=== PATIENT | female | born 1945 | race Caucasian/White ===

== ENCOUNTER 2018-02-04 07:30 | Inpatient (IN) | payer MEDICARE, OTHER ==
--- NOTE | 2018-04-24 20:36 | HP ---
PREOPERATIVE HISTORY AND PHYSICAL: DATE OF ADMISSION/SURGERY: 05/06/18 DATE OF OFFICE VISIT: 04/24/18 ATTENDING SURGEON: Dr. Lloyd Baker.* (DICTATED bY KAMILAH ROE) PROCEDURE: Right total shoulder reverse. CHIEF COMPLAINT: Right shoulder pain. HISTORY OF PRESENT ILLNESS: Faby is a 73-year-old female who presents to the clinic for right shoulder pain due to osteoarthritis and rotator cuff tear. She has failed conservative measures and has therefore agreed to undergo a right total shoulder reverse with Dr. Baker on 05/06/18. PAST MEDICAL HISTORY: 1. Hypertension. 2. Chronic hyponatremia. 3. Asthma. 4. Lim's esophagus. 5. Severe scoliosis. 6. Osteoarthritis. 7. History of non-Hodgkin's lymphoma. 8. History of alcoholism, she is 14 years' sober. PAST SURGICAL HISTORY: 1. Right axilla mass removed in 1992 with chemotherapy. 2. D and C. 3. Excision of basal cell carcinoma of left neck and squamous cell carcinoma of the scalp. 4. Skin graft to the palmar aspect of the right index finger. 5. Cholecystectomy. 6. Tonsillectomy. 7. Excision of squamous cell carcinoma with scalp repair. 8. Endoscopy. The patient denies prior complications with anesthesia. MEDICATIONS: 1. Bumetanide 1 mg once a week. 2. Spironolactone 25 mg 1 by mouth everyday. 3. Gabapentin 400 mg 1 cap twice a day. 4. Flovent 110 mcg per act 2 puffs twice a day. 5. ProAir HFA 2 puffs 4 times a day. 6. Fluticasone propionate 50 mcg per act 2 sprays in the nostril daily. 7. Azelastine nasal 0.15% 1 spray each nostril daily. 8. Ibuprofen 200 mg 2 to 3 tabs every 6 hours as needed for pain. 9. Multivitamin 1 everyday. 10. Os-Fox 1 daily. 11. Vitamin D 2000 units 1 daily. 12. Biotin maximum strength 5000 mcg 1 by mouth daily. 13. Fexofenadine 180 mg daily. 14. Diclofenac sodium 1% apply 2 g to affected area twice a day. 15. Lactaid as directed. 16. Protonix 40 mg 1 by mouth everyday. ALLERGIES: CEPHALOSPORIN, shellfish-derived products, and KEFLEX. The patient is not allergic to penicillin. She has been skin tested. FAMILY HISTORY: Positive for cancer on maternal side. SOCIAL HISTORY: She lives alone. 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 She denies tobacco use. She reports a history of alcoholism. She has been sober for 14 years. She is right-hand dominant. REVIEW OF SYSTEMS: A 14-point review of systems was reviewed with the patient. Positive for current complaint; otherwise, negative. Denies fever, chills, chest pain, shortness of breath, history of DVT, history of bleeding disorder. PHYSICAL EXAMINATION GENERAL: A 73-year-old well-developed, well-nourished female, in no acute distress. Alert and oriented x3. VITAL SIGNS: Height 58.5, weight 131, blood pressure 124/74, respiratory rate 20, temperature 97.9, BMI 26.9. HEENT: Normocephalic, atraumatic. PERRLA. Throat clear. NECK: Supple. PULMONARY: Lungs are clear to auscultation bilaterally. No wheezing, rhonchi, or rales. CARDIO: Regular rate and rhythm. S1, S2. No murmurs, gallops, or rubs. No edema. ABDOMEN: Positive bowel sounds. Soft, nontender. NEURO: Alert and oriented x3. Cranial nerves grossly intact. MUSCULOSKELETAL: Right upper extremity: Skin is intact. No warmth or erythema. 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 She is only able to forward flex to about 80 degrees, abduct to about 45, externally rotate to 20, internal rotation to lateral hip. +2 radial pulses. Sensation intact to light touch distally. +4/5 strength to rotator cuff testing with pain. DIAGNOSTIC STUDIES: CT of the right shoulder revealed glenohumeral joint osteoarthritis with a full-thickness rotator cuff tear. IMPRESSION: Right shoulder osteoarthritis, rotator cuff tear. PLAN: The patient is scheduled to undergo a right total shoulder reverse with Dr. Baker on 05/06/18. Postoperatively, a consult for physical therapy to help with ambulation will be placed. She will be given vancomycin preoperatively and postoperatively. We will wean her off of narcotics as soon as possible and get her on Tylenol and ibuprofen due to her history of alcoholism. She does have mild white blood cell count from a week ago. We will repeat those labs as well as a urine to make sure she does not have a UTI. If she does, we will treat her preoperatively. She will follow up in 10 to 14 days postop for followup and suture removal. KAMILAH ROE [id number]/[facility] #: [id number] [place]
[2018-05-05] MEDS ORDERED: Buffered Lidocaine 1% SYRIN* 1 ML/SYRINGE INTRADERM ONE (14:30)
[2018-05-06] MEDS ORDERED: VANCOMYCIN IVPB SCH ×2
[2018-05-06] MEDS ORDERED: NS 0.9% IVPB SCH ×2
--- OUTSIDE RECORDS SUMMARY | 2018-05-06 05:36 | XMS REPORT | Continuity of Care Document ---
:1945 External Reference #:[id number] Author Name Nadja Odonnell Care Team Providers Name Role Phone Briana Medrano MD Primary Care Physician Unavailable Payers Type Date Identification Numbers Payment Provider Subscriber Policy Number: [id number] Medicare Faby Hobson PayID: [id number] [address] [place] [address] Expires: 2017 Policy Number: [id number] Medicare Faby Hobson PayID: [id number] [address] [place] [address] Policy Number: [id number] [facility] Faby Hobson Group Number: [id number] [address] PayID: [id number] [place] [address] Advance Directives Description No Information Available Problems Date Description Provider Status Onset: 01/01/2018 Closed fracture of distal end of radius Lloyd Baker MD Active Onset: 12/11/2017 Wrist joint pain Lloyd Baker MD Active Onset: 07/03/2017 Full thickness rotator cuff tear Lloyd Baker MD Active Onset: 07/03/2017 Localized, primary osteoarthritis of the Lloyd Baker MD Active shoulder region Family History Description No Information Available Social History Type Date Description Comments Sex Unknown Lives With Alone 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 ETOH Use Denies alcohol use Tobacco Use Start: Unknown Patient has never smoked Smoking Status Reviewed: 04/07/18 Patient has never smoked Exercise Type/Frequency Exercises sporadically Allergies, Adverse Reactions, Alerts Date Description Reaction Status Severity Comments 05/06/2017 Cephalosporins Active 05/06/2017 Penicillin Active 05/06/2017 Shellfish-Derived Products Active 05/06/2017 Keflex Rash Active Medications Medication Date Status Form Strength Qnty SIG Indications Ordering Provider Nexium 04/09/ Active Capsules DR 40mg 90cap 1 by [place] [address] s mouth Hess, every day 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 Bumetanide 04/09/ Active Tablets 1mg 14tab once a [place] [address] s week PAUL Hess Spironolactone 04/09/ Active Tablets 25mg 30tab 1 by [place] [address] s mouth Hess, every day 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 or as directed Gabapentin / Active Capsules 400mg Take 1 Unknown 0000 Capsule By Mouth Twice Daily And 2 Capsules AT Bedtime Flovent HFA / Active Aerosol 110mcg/Ac Inhale 2 Unknown 0000 t Puffs By Mouth Twice Daily Proair HFA / Active Aerosol 108(90Bas Inhale 2 Unknown 0000 e) Puffs By mcg/Act Mouth 4 Times Daily as Needed Fluticasone / Active Suspension 50mcg/Act Use 2 Unknown Propionate 0000 Sprays In Each Nostril Daily Azelastine HCL / Active Solution 0.15% Use 1 Unknown (Nasal) 0000 [place] In Each Nostril Daily Ibuprofen 200 / Active Tablets 200mg 400-600mg Unknown 0000 every 6 hours as needed for pain. Multivitamin / Active Tablets 1 by Unknown Adult 0000 mouth every day Oscal 500/200 / Active Tablets 500-200mg Unknown D-3 0000 -Unit Vitamin D3 Super / Active Capsules 2000Unit 1 by Unknown Strength 0000 mouth every day Biotin Maximum / Active Capsules 5000mcg otc Unknown Strength 0000 Fexofenadine HCL / Active Tablets 180mg once Unknown 0000 daily Diclofenac / Active Gel 1% apply 2 Unknown Sodium 0000 grams to affected area twice daily Lactaid / Active as Unknown 0000 directed Glucosamine / Hx Capsules 500Comp 1 by Unknown Chondroitin 500 0000 - mouth Complex 01/07/ twice a 2018 day Vitamin C // Hx daily Unknown 0000 - 2017 Medications Administered in Office Medication Date Status Form Strength Qnty SIG Indications Ordering Provider Triamcinolone 01/08/ Administered Injection Zaneb (Kenalog) 2017 MD Olivia Triamcinolone 11/18/ Administered Injection Zaneb (Kenalog) 2017 MD Olivia Triamcinolone 10/07/ Administered Injection Zaneb (Kenalog) 2017 MD Olivia Triamcinolone 08/12/ Administered Injection Zaneb (Kenalog) 2017 MD Olivia Triamcinolone 07/03/ Administered Injection Zaneb (Kenalog) 2017 MD Olivia Triamcinolone 05/06/ Administered Injection Zaneb (Kenalog) 2017 MD Olivia Immunizations Description No Information Available Vital Signs Date Vital Result Comment 04/07/2018 10:05am Height 58.5 inches 4'10.50" Weight 133.00 lb BP Systolic 134 mmHg BP Diastolic 66 mmHg Respiratory Rate 20 /min Pain Level 6 BMI (Body Mass Index) 27.3 kg/m2 04/01/2018 8:10am Height 58.5 inches 4'10.50" Weight 133.00 lb BP Systolic 108 mmHg BP Diastolic 67 mmHg Respiratory Rate 17 /min Pain Level 2 BMI (Body Mass Index) 27.3 kg/m2 01/13/2018 8:16am BP Systolic 142 mmHg BP Diastolic 82 mmHg Pain Level 9 01/08/2018 8:08am Heart Rate 84 /min BP Systolic 128 mmHg BP Diastolic 80 mmHg Respiratory Rate 12 /min Body Temperature 97.0 F Pain Level 0 01/01/2018 2:34pm Heart Rate 64 /min BP Systolic 148 mmHg BP Diastolic 96 mmHg Respiratory Rate 18 /min Pain Level 6 12/11/2017 8:28am Height 58.5 inches 4'10.50" Weight 132.00 lb BP Systolic 124 mmHg BP Diastolic 62 mmHg Respiratory Rate 20 /min Pain Level 4 BMI (Body Mass Index) 27.1 kg/m2 11/18/2017 8:40am Height 58.5 inches 4'10.50" Heart Rate 80 /min BP Systolic Sitting 150 mmHg BP Diastolic Sitting 70 mmHg Respiratory Rate 16 /min Body Temperature 97.7 F Pain Level 3 10/07/2017 7:57am Height 58.5 inches 4'10.50" Weight 132.00 lb BP Systolic 130 mmHg BP Diastolic 80 mmHg Respiratory Rate 16 /min Body Temperature 98.1 F Pain Level 5 BMI (Body Mass Index) 27.1 kg/m2 08/26/2017 11:04am Height 58.5 inches 4'10.50" Weight 132.00 lb Heart Rate 80 /min BP Systolic 122 mmHg BP Diastolic 76 mmHg Body Temperature 98.0 F Pain Level 0 BMI (Body Mass Index) 27.1 kg/m2 08/12/2017 3:00pm Height 58.5 inches 4'10.50" Weight 132.00 lb BP Systolic 124 mmHg BP Diastolic 72 mmHg Respiratory Rate 20 /min Pain Level 5 BMI (Body Mass Index) 27.1 kg/m2 07/03/2017 1:05pm Height 58.5 inches 4'10.50" Weight 132.00 lb BP Systolic 124 mmHg BP Diastolic 82 mmHg Respiratory Rate 20 /min Pain Level 5 BMI (Body Mass Index) 27.1 kg/m2 05/06/2017 8:28am Height 58.5 inches 4'10.50" Weight 132.00 lb w/ shoes Heart Rate 84 /min reg BP Systolic Sitting 100 mmHg Lue BP Diastolic Sitting 64 mmHg Lue Respiratory Rate 16 /min Pain Level 8 B/L shoulders BMI (Body Mass Index) 27.1 kg/m2 05/06/2017 8:20am Height 58.5 inches 4'10.50" Weight 132.00 lb BMI (Body Mass Index) 27.1 kg/m2 Results Test Date Facility Test Result H/L Range Note Laboratory test 09/12/2017 [facility] Vitamin D 74.7 ng/mL High 20-[address] [place] [address] [phone] Procedures Date Code Description Status 01/08/2018 Inj/Aspir Major JT Or Bursa W/ US Completed 11/18/2017 Inject/Drain Joint/Bursa Major W/O US Completed 10/07/2017 Inj/Aspir Major JT Or Bursa W/ US Completed 08/12/2017 Inject/Drain Joint/Bursa Major W/O US Completed 07/03/2017 Inject/Drain Joint/Bursa Major W/O US Completed 05/06/2017 Inject/Drain Joint/Bursa Major W/O US Completed 06/03/2016 [id number] Mammogram Completed 10/12/2015 [id number] Bone Mineral Density Test Completed 05/25/2015 [id number] Mammogram Completed 05/24/2014 [id number] Mammogram Completed 05/19/2013 [id number] Mammogram Completed 05/20/2012 [id number] Mammogram Completed 05/18/2012 [id number] Mammogram Completed 05/16/2010 [id number] Mammogram Completed 05/03/2009 [id number] Mammogram Completed 02/02/2005 [id number] Bone Mineral Density Test Completed Encounters Type Date Location Provider Dx Diagnosis Office Visit 01/13/2018 Orthopedic Nick Alvarado, S52.502D Unsp fx the low 8:00a Services Of Richard.Roderick MD end left rad, subs for clos fx w routn [facility] Office Visit 01/01/2018 Orthopedic Lloyd Baker MD S52.502A Unsp fracture of 2:30p Services Of [facility] the lower end of left radius, init S52.502D Unsp fx the low end left rad, subs for clos fx w routn [facility] Office Visit 12/11/2017 [place] Blood9.012 Primary 8:15a Services Of osteoarthritis, left C.M.A. shoulder M25.532 Pain in left wrist Office Visit 11/18/2017 Tahira Baker M19.011 Primary 8:45a Services Of osteoarthritis, C.M.A. right shoulder M75.121 Complete rotatr-cuff tear/ruptr of r shoulder, not trauma Office Visit 08/26/2017 Tahira Baker M19.011 Primary 11:00a Services Of osteoarthritis, C.M.A. right shoulder M75.121 Complete rotatr-cuff tear/ruptr of r shoulder, not trauma Office Visit 08/12/2017 Tahira Baker M19.011 Primary 2:45p Services Of osteoarthritis, C.M.A. right shoulder M75.121 Complete rotatr-cuff tear/ruptr of r shoulder, not trauma Office Visit 07/03/2017 Tahira Baker M19.012 Primary 1:00p Services Of osteoarthritis, left C.M.A. shoulder M19.011 Primary osteoarthritis, right shoulder M75.121 Complete rotatr-cuff tear/ruptr of r shoulder, not trauma M75.122 Complete rotatr-cuff tear/ruptr of left shoulder, not trauma Office Visit 05/06/2017 Tahira Baker M19.012 Primary 8:00a Services Of osteoarthritis, left C.M.A. shoulder M19.011 Primary osteoarthritis, right shoulder M75.121 Complete rotatr-cuff tear/ruptr of r shoulder, not trauma M75.122 Complete rotatr-cuff tear/ruptr of left shoulder, not trauma Plan of Treatment Future Appointment(s):04/24/2018 10:15 am - Lloyd Baker MD at [facility]04/07/2018 - Lloyd Baker, MDS52.502D Unspecified fracture of the lower end of left radius, subseqFollow up:Follow up: h and p
--- OUTSIDE RECORDS SUMMARY | 2018-05-06 05:36 | XMS REPORT | Continuity of Care Document ---
:1945 External Reference #:[id number] Author Name Jada Abdi Care Team Providers Name Role Phone Briana Medrano MD Primary Care Physician Unavailable Payers Type Date Identification Numbers Payment Provider Subscriber Policy Number: [id number] Medicare Faby Hobson PayID: [id number] [address] [facility] [address] Expires: 2017 Policy Number: [id number] Medicare Faby Hobson PayID: [id number] [address] [place] [address] Policy Number: [id number] [facility] Faby Hobson Group Number: [id number] [address] PayID: [id number] [place] [address] Advance Directives Description No Information Available Problems [...] Unknown Lives With Alone 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 ETOH Use Denies alcohol use Tobacco Use Start: Unknown Patient has never smoked Smoking Status Reviewed: 04/24/18 Patient has never smoked Exercise Type/Frequency Exercises sporadically Allergies, Adverse Reactions, Alerts Date Description Reaction Status Severity Comments 05/06/2017 Cephalosporins Active 05/06/2017 Shellfish-Derived Products Active 05/06/2017 Keflex Rash Active Medications Medication Date Status Form Strength Qnty SIG Indications Ordering Provider Bumetanide 04/09/ Active Tablets 1mg 14tab once a Re 2018 s week PAUL Hess Spironolactone 04/09/ Active Tablets 25mg 30tab 1 by [place] [address] s mouth Hess, every day GIFT WRAPPER or as directed Gabapentin / Active Capsules [...] Solution 0.15% Use 1 Unknown (Nasal) 0000 [place] In Each Nostril Daily Ibuprofen 200 / [...] Lactaid / Active as Unknown 0000 directed Protonix / Active Tablets DR 40mg 1 by Unknown 0000 mouth every day Nexium 04/09/ Hx Capsules DR 40mg 90cap 1 by [facility] 2017 - s mouth Hess, 04/23/ every day GIFT WRAPPER 2019 Glucosamine / Hx Capsules 500Comp 1 by Unknown Chondroitin 500 0000 - mouth Complex 01/07/ twice a 2018 day Vitamin C / Hx daily Unknown 0000 - 2017 Medications Administered in Office Medication Date Status Form Strength Qnty SIG Indications Ordering Provider Triamcinolone 04/24/ Administered Injection Zaneb (Kenalog) 2018 MD Olivia Triamcinolone 01/08/ Administered Injection Zaneb (Kenalog) 2017 [...] Available Vital Signs Date Vital Result Comment 04/24/2018 10:08am Height 58.5 inches 4'10.50" Weight 131.00 lb BP Systolic 124 mmHg BP Diastolic 74 mmHg Respiratory Rate 20 /min Body Temperature 97.9 F Pain Level 4 BMI (Body Mass Index) 26.9 kg/m2 04/07/2018 10:05am Height 58.5 inches 4'10.50" Weight [...] Date Facility Test Result H/L Range Note Inr/Protime 04/24/2018 [facility] Inr 0.98 N 0.77-1.[address] [place] [address] [phone] Laboratory test 04/24/2018 [facility] Partial 27.2 seconds N 26.0-36.[address] [place] [address] PTT [phone] CBC Auto Diff 04/24/2018 [facility] White Blood 13.5 10^3/uL High 3.5-10.[address] [place] [address] [phone] Red Blood Count 4.09 10^6/uL N 4.00-5.40 Hemoglobin 12.6 g/dL N 12.0-16.0 Hematocrit 36 % N 35-47 Mean Corpuscular Volume 88 fL N 80-97 Mean Corpuscular Hemoglobin 31 pg N 27-31 Mean Corpuscular HGB Conc 35 g/dL N 31-36 Red Cell Distribution Width 13 % N 10.5-15 Platelet Count 466 10^3/uL High 150-450 Mean Platelet Volume 6.7 fL Low 7.4-10.4 Abs Neutrophils 12.7 10^3/uL High 1.5-7.7 Abs Lymphocytes 0.7 10^3/uL Low 1.0-4.8 Abs Monocytes 0.1 10^3/uL N 0-0.8 Abs Eosinophils 0 10^3/uL N 0-0.6 Abs Basophils 0 10^3/uL N 0-0.2 Abs Nucleated RBC 0 10^3/uL Granulocyte % 94.1 % Lymphocyte % 5.1 % Monocyte % 0.5 % Eosinophil % 0.1 % Basophil % 0.2 % Nucleated Red Blood Cells % 0 Comp Metabolic Panel 04/24/2018 [facility] Sodium 124 mmol/L Low 135-[address] [place] [id number] [phone] Potassium 4.6 mmol/L N 3.5-5.0 Chloride 89 mmol/L Low 101-111 Co2 Carbon Dioxide 25 mmol/L N 22-32 Anion Gap 10 mmol/L N 2-11 Glucose 116 mg/dL High 70-100 Blood Urea Nitrogen 17 mg/dL N 6-24 Creatinine 0.89 mg/dL N 0.51-0.95 BUN/Creatinine Ratio 19.1 N 8-20 Calcium 9.7 mg/dL N 8.6-10.3 Total Protein 7.7 g/dL N 6.4-8.9 Albumin 4.6 g/dL N 3.2-5.2 Globulin 3.1 g/dL N 2-4 Albumin/Globulin Ratio 1.5 N 1-3 Total Bilirubin 0.40 mg/dL N 0.2-1.0 Alkaline Phosphatase 48 U/L N 34-104 Alt 18 U/L N 7-52 Ast 27 U/L N 13-39 Egfr Non- 62.3 >60 Egfr 75.4 >60 1 Type & Screen 04/24/2018 [facility] Patient Blood Type A Positive [address] [place] [address] [phone] Antibody Screen NEGATIVE Urinalysis Profile 04/24/2018 [facility] Urine Color Yellow [address] [place] [address] [phone] Urine Appearance Clear Urine Specific Rillito 1.011 N 1.010-1.030 Urine pH 7.0 N 5-9 Urine Urobilinogen Negative Negative Urine Ketones Negative Negative Urine Protein Negative Negative Urine Leukocytes 3+ Abnormal Negative Urine Blood Negative Negative Urine Nitrite Negative Negative Urine Bilirubin Negative Negative Urine Glucose Negative Negative Urine White Blood Cell 2+(11-20/hpf) Abnormal Absent Urine Red Blood Cell 1+(3-5/hpf) Abnormal Absent Urine Bacteria Absent Absent Urine Culture And 04/24/2018 [facility] Urine SEE RESULT [address] [place] [address] [phone] Laboratory test 09/12/2017 [facility] Vitamin D 74.7 ng/mL High 20-[address] [place] [address] [phone] 1 Because ethnic data is not always readily available, this report includes an eGFR for both -Americans and non- Americans. The National Kidney Disease Education Program (NKDEP) does not endorse the use of the MDRD equation for patients that are not between the ages of 18 and 70, are , have extremes of body size, muscle mass, or nutritional status, or are non- or non-. According to the National Kidney Foundation, irrespective of diagnosis, the stage of the disease is based on the level of kidney function: Stage Description GFR(mL/min/1.73 m(2)) 1 Kidney damage with normal or decreased GFR 90 2 Kidney damage with mild decrease in GFR 60-89 3 Moderate decrease in GFR 30-59 4 Severe decrease in GFR 15-29 5 Kidney failure <15 (or dialysis) 2 SEE RESULT BELOW Name: FABY HOBSON : [address]: Lloyd Baker MD Acct: [id number] Unit: [id number] AGE: 73 Location: [facility] Re04/24/18 SEX: F Status: REG REF SPEC: [id number] NIGEL: 04/24/[address] [facility] [address]: Lloyd Baker MD REQ: [id number] RECD: 04/24/18 STATUS: ANA HOLLOWAY DR: Briana Medrano MD _ SOURCE: URINE SPDESC: ORDERED: Urine Culture Procedure Result Reported Site Urine Culture Final 04/26/18- 0806 ML Organism 1 PSEUDOMONAS AERUGINOSA [place] Count 50-75,000 (Many) CFU/ML 1. PSEUDOMONAS AERUGINOSA [facility] RX --------- ------ Cefazolin >=64 R Cefepime <=1 S Ciprofloxacin <=0.25 S Gentamicin <=1 S Levofloxacin 0.25 S Meropenem <=0.25 S Pipercillin/Tazobactam <=4 S Contact the Microbiology Department for any additional antibiotic reporting. * ML - Main Lab . END OF REPORT DEPARTMENT OF PATHOLOGY, [address] [place] [address] Xavi Leigh M.D. Director [facility] # [id number] Procedures Date Code Description Status 01/08/2018 Inj/Aspir Major JT Or Bursa W/ US Completed 11/18/2017 Inject/Drain Joint/Bursa Major W/O US Completed 10/07/2017 Inj/Aspir Major JT Or Bursa W/ US Completed 08/12/2017 Inject/Drain Joint/Bursa Major W/O US Completed 07/03/2017 Inject/Drain Joint/Bursa Major W/O US Completed 05/06/2017 Inject/Drain Joint/Bursa Major W/O US Completed 06/03/2016 [id number] Mammogram Completed 10/12/2015 [id number] Bone Mineral Density Test Completed 05/25/2015 [id number] Mammogram Completed 05/24/2014 [id number] Mammogram Completed 05/19/2013 [id number] Mammogram Completed 05/20/2012 [id number] Mammogram Completed 05/18/2012 [id number] Mammogram Completed 05/16/2010 [id number] Mammogram Completed 05/03/2009 [id number] Mammogram Completed 02/02/2005 [id number] Bone Mineral Density Test Completed Encounters Type Date Location Provider Dx Diagnosis Office Visit 04/07/2018 Orthopedic Lloyd Baker MD S52.502D Unsp fx the low 9:30a Services Of [facility]. end left rad, subs for clos fx w routn heal M19.012 Primary osteoarthritis, left shoulder M19.011 Primary osteoarthritis, right shoulder Office Visit 04/01/2018 8:00a Orthopedic Nick Alvarado S52.502D Unsp fx the Services Of [place] low end left rad, subs for clos fx w routn heal S52.502P Unsp fx the lower end left rad, subs for clos fx w malunion Office Visit 01/13/2018 8:00a Orthopedic Nick S52.502D Unsp fx the low Services Of MD Christiano end left rad, C.M.A. subs for clos fx w routn heal Office Visit 01/01/2018 2:30p Orthopedic Lloyd Baker S52.502A Unsp fracture Services Of of the lower C.M.A. end of left radius, init S52.502D Unsp fx the low end left rad, subs for clos fx w routn heal Office Visit 12/11/2017 Tahira Baker, M19.012 Primary 8:15a Services Of osteoarthritis, left C.M.A. [...] left shoulder, not trauma Office Visit 05/06/2017 Orthopedic Lloyd Baker, M19.012 Primary 8:00a Services Of osteoarthritis, left C.M.A. shoulder M19.011 Primary osteoarthritis, right shoulder M75.121 Complete rotatr-cuff tear/ruptr of r shoulder, not trauma M75.122 Complete rotatr-cuff tear/ruptr of left shoulder, not trauma Plan of Treatment Future Appointment(s):05/19/2018 1:15 pm - Lloyd Baker MD at [facility]05/06/2018 7:30 am - Avril Mora PA-C at [facility]05/06/2018 7:30 am - Lloyd Baker MD at [facility]04/24/2018 - Lloyd Baker, MDM19.011 Primary osteoarthritis, right shoulderFollow up:Follow up: 10-14 days post op
[2018-05-06] MEDS ORDERED: Famotidine IV* 10 MG/ML 2 ML (20 mg) ONE (05:54)
[2018-05-06] MEDS ORDERED: NS 0.9% 1000 ML** 1,000 ML IV SCH (06:00)
[2018-05-06] MEDS ORDERED: Famotidine IV* 10 MG/ML 2 ML (20 mg) IV ONE (06:00)
[2018-05-06] MEDS ORDERED: Lactated Ringers 1000 ML Bag* 1,000 ML IV SCH ×2 (06:00→11:00)
[2018-05-06] MEDS ORDERED: Ropivacaine* 2 MG/ML 20 ML VIAL (0.2%) ONE (06:42)
[2018-05-06] MEDS ORDERED: ROPIVACAINE 5 MG/ML 30 ML BTL (0.5%) ONE (07:20)
[2018-05-06] MEDS ORDERED: Lidocaine 1%* 5 ML VIAL ONE (07:20)
[2018-05-06] MEDS ORDERED: Midazolam* 1 MG/ML 5 ML VIAL (5 MG) ONE (07:23)
[2018-05-06] MEDS ORDERED: fentaNYL* 50 MCG/ML 2 ML VIAL (100 MCG VIAL) ONE (07:24)
[2018-05-06] MEDS ORDERED: KETAMINE HCL* 50 MG/ML 10 ML VIAL ONE (08:07)
[2018-05-06] MEDS ORDERED: oxyCODONE TAB* 5 MG TAB PO PRN (08:57)
[2018-05-06] MEDS ORDERED: Naloxone* 0.4 MG/ML 1 ML VIAL IV PRN (08:57)
[2018-05-06] MEDS ORDERED: HYDROmorphone INJ1* 1 MG/ML SYRINGE IV PRN (08:57)
[2018-05-06] MEDS ORDERED: DiMENhydriNATE IV* 50 MG/ML VIAL IV PUSH PRN (08:57)
[2018-05-06] MEDS ORDERED: Acetaminophen IV 1GM/100ML * 1,000 MG/100 ML VIAL IVPB ONE (08:57)
[2018-05-06] MEDS ORDERED: Succinylcholine* 20 MG/ML 10 ML VIAL ONE (09:08)
[2018-05-06] MEDS ORDERED: Propofol* 10 MG/ML 20 ML BTL ONE (09:08)
[2018-05-06] MEDS ORDERED: EPHEDrine (Pressors)* 50 MG/ML VIAL ONE (09:08)
[2018-05-06] MEDS ORDERED: Ketorolac INJ* 30 MG/ML 1 ML VIAL ONE (09:08)
[2018-05-06] MEDS ORDERED: Ondansetron INJ* 2 MG/ML VIAL ONE (09:08)
[2018-05-06] MEDS ORDERED: Lidocaine 2% PF * 5 ML VIAL ONE (09:08)
[2018-05-06] MEDS ORDERED: diPHENhydraMINE PO* 25 MG PO PRN (10:03)
[2018-05-06] MEDS ORDERED: Bisacodyl SUPP* 10 MG SUPP PR PRN (10:03)
[2018-05-06] MEDS ORDERED: Magnesium Hydroxide LIQ* 30 ML UDC PO PRN (10:03)
[2018-05-06] MEDS ORDERED: Ondansetron ODT TAB* 4 MG PO PRN (10:03)
[2018-05-06] MEDS ORDERED: diPHENhydraMINE IV* 50 MG/ML 1 ml VIAL (BENADRYL) IV PRN (10:03)
[2018-05-06] MEDS ORDERED: Temazepam CAP* 15 MG PO PRN (10:03)
[2018-05-06] MEDS ORDERED: Polyethylene Glycol 3350* 17 GM PACKET PO PRN (10:03)
[2018-05-06] MEDS ORDERED: Ondansetron INJ* 2 MG/ML VIAL IV PRN (10:03)
[2018-05-06] MEDS ORDERED: Morphine INJ* 2 MG/ML 1 ML SYRINGE (TWO MG - NEW SYRINGE VERSION) IV PRN (10:03)
[2018-05-06] MEDS ORDERED: traMADol TAB* 50 MG PO PRN (10:03)
[2018-05-06] MEDS ORDERED: Cyclobenzaprine TAB* 10 MG PO PRN (10:03)
[2018-05-06] MEDS ORDERED: Ketorolac INJ* 60 MG/2 ML VIAL IV PUSH ONE (10:07)
[2018-05-06] MEDS ORDERED: Albuterol HFA INHALER* 8 gm MDI INH PRN (10:15)
[2018-05-06] MEDS ORDERED: Mometasone 220 MCG MDI INH PRN (10:15)
[2018-05-06] MEDS ORDERED: Acetaminophen IV 1GM/100ML * 100 ML ONE (10:23)
[2018-05-06] MEDS ORDERED: Vancomycin per Pharmacy* NOTE FOLLOW UP SCH (11:00)
[2018-05-06] MEDS ORDERED: Acetaminophen TAB* 325 MG PO SCH (11:00)
[2018-05-06] MEDS: Prenatal Vitamin TAB PO SCH (12:31)
[2018-05-06] MEDS: Spironolactone TAB* 25 MG PO SCH ×2 (12:32→17:13)
[2018-05-06] MEDS: Gabapentin CAP(*) 400 MG PO SCH ×3 (12:35→20:57)
[2018-05-06] MEDS: oxyCODONE/Acetamin 5/325 MG* TAB PO PRN (16:13)
--- NOTE | 2018-05-06 16:18 | CONS ---
CONSULTATION REPORT: DATE OF CONSULT: 05/06/18 CONSULTING PROVIDER: Mathew Branch MD REFERRING SERVICE: Orthopedics, Dr. Baker. REASON FOR CONSULT: Medical management for right total reverse shoulder elective procedure with history of hypertension, asthma, chronic hyponatremia. CHIEF COMPLAINT: Right shoulder osteoarthritis and rotator cuff tear. HISTORY OF PRESENT ILLNESS: Faby Hobson is a 73-year-old female with past medical history of hypertension, non-Hodgkin lymphoma in 1992, status post chemotherapy, asthma, scoliosis, Lim esophagus, chronic hyponatremia, and markedly positive ABENA levels in 2016. She presented for elective right total reverse shoulder operation with Dr. Baker. She is recovering well, is pain free. She reports that she has taken diuretics and spironolactone for approximately 30 years after she would get swelling in her joints, her fingers and ankles, especially correlated with her monthly menstrual cycle. This was a common condition in the female members of her family as well. She denies any history of shortness of breath with exertion, though does not exercise. She does not think she has ever had an echocardiogram or evaluation by a web site administrator. She after her chemotherapy developed worsening spinal stenosis, she states, and also distal neuropathy in her toes and fingers bilaterally, no loss of strength. She was recently treated with a 3-day course of antibiotics for a urine culture that on 04/24/18 actually grew Pseudomonas aeruginosa 50, 000 to 75,000. She does not know what antibiotic she received other than her insurance covered the once a day dosing, she took it twice a day for 3 days. It was notably sensitive to fluoroquinolones and this was done in the setting of leukocytosis. On preoperative testing, she was asymptomatic. Previous evaluation on review of records indicate markedly positive ABENA titer of 1:1280 on 05/25/15. She had negative SSA/Ro and SSB/La antibodies, negative Scl-70 scleroderma antibody, negative double stranded DNA, and negative rheumatoid factor antibodies in May and May 2015. She chronically has swelling in her bilateral carpometacarpal joints and had x-rays on the left wrist on 04/01/18 showed hairline fracture of the distal radius, osteopenia, osteoarthritis, and subluxation of the first carpometacarpal joint and advanced osteoarthritis of the first carpometacarpal and STT joints. She denies any orthopnea or paroxysmal nocturnal dyspnea. PAST MEDICAL HISTORY: 1. Chronic hyponatremia, levels between 124 and 130 over the last 6 years. 2. Hypertension. 3. History of non-Hodgkin lymphoma of the right axilla, status post excision and CHOP chemotherapy in 1992. 4. Basal cell carcinoma. 5. Squamous cell carcinoma of the scalp. 6. Former alcoholism, sober for 14 years. 7. Spinal stenosis/scoliosis. 8. Osteoarthritis. MEDICATIONS: At home include: 1. Spironolactone 25 mg p.o. t.i.d. 2. Simethicone 125 mg p.o. p.r.n. 3. Pantoprazole 40 mg daily. 4. Multivitamin 1 tab each day. 5. Ibuprofen 2 to 3 tabs daily. 6. Gabapentin 400 mg p.o. 4 times a day. 7. Flovent 1 puff inhaled b.i.d. p.r.n. 8. Fexofenadine 100 mg p.o. daily. 9. Cholecalciferol 10,000 units p.o. q.a.m. 10. Caltrate 600 plus D 1 tab p.o. twice a day. 11. Bumex 1 mg p.o. b.i.d. 12. Eflqr-F-sespojsdwcytl 1 capsule p.o. p.r.n. 13. Albuterol HFA 2 puffs inhaled q.6 hours p.r.n. ALLERGIES: KEFLEX (rash), SHELLFISH. FAMILY HISTORY: She has a uncle who of non-Hodgkin lymphoma in his 50s. Her mother of lung cancer and was a heavy smoker, at age 78. Her maternal aunt of mesothelioma, age 52, she was a smoker. She has a maternal cousin who of Hodgkin lymphoma in his 30s. SOCIAL HISTORY: The patient lives alone. 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 Denies smoking history. She is former alcoholic, sober for 14 years. REVIEW OF SYSTEMS: A complete 14-point review of systems is negative except as per HPI. PHYSICAL EXAMINATION: General Appearance: No acute distress, lying in the hospital bed. Vital Signs: Temperature 97.4, heart rate 70, respiratory rate 16, satting 98% on 2 L nasal cannula, blood pressure 113/57. HEENT: Normocephalic, atraumatic. Pupils are equal, round, and reactive to light. Extraocular motions are intact. No scleral icterus. Moist mucous membranes. No cervical lymphadenopathy or neck stiffness. Lungs: Anteriorly clear to auscultation bilaterally with no wheezing, rales, or rhonchi. Cardiovascular: 2/6 systolic ejection murmur in the left upper and right upper sternal borders. Abdomen: Soft, nontender, nondistended. Extremities: Warm, well perfused. No peripheral edema. Right shoulder in sling and cooling system. Neuro: Cranial nerves II through XII intact. Moving all extremities. Distal paresthesias in her toes and fingers bilaterally. MSK: CMC joint swelling b/l. LABORATORY DATA: Labs, none recently. ASSESSMENT AND PLAN: Faby Hobson is a 73-year-old female with past medical history of chronic hyponatremia, on chronic diuretics for 30 years for swelling in her fingers and ankles and evidence of osteoarthritis in her shoulder and wrists, has had a markedly positive ABENA, but otherwise negative double stranded DNA. Hx of negative rheumatoid factor tests. We have been consulted for medical management of her asthma, hyponatremia, and reported hypertension. We will get a basic metabolic panel in the morning. She notably has never had an echocardiogram, she thinks, despite being on 1 Bumex twice a day for 30 years and does have evidence of murmur on exam. I would recommend an outpatient evaluation with an echocardiogram. Also, I would recommend referral as an outpatient to Dr. Brooks from Rheumatology and I will add an anti-CCP antibody to AM labs. We will continue her Bumex twice a day here. She is on Lovenox for DVT prophylaxis. She is also getting spironolactone 25 mg 3 times a day. She got a dose of vancomycin in the setting of CEPHALOSPORIN, specifically CEPHALEXIN allergy. Otherwise, we will monitor blood pressures and follow her along closely. Thank you for this consultation. [id number]/[facility] #: [id number] [place]
[2018-05-06] MEDS: Acetaminophen TAB* 325 MG PO SCH (17:24)
--- NOTE | 2018-05-06 19:03 | OP ---
OPERATIVE REPORT: DATE OF OPERATION: 05/06/18 DATE OF : 47 SURGEON: Lloyd Baker MD ASSISTANTS: 1. KAMILAH John 2. NICO Scanlon ANESTHESIOLOGIST: Dr. Loya. ANESTHESIA: General with interscalene block. PRE-OP DIAGNOSIS: Right shoulder rotator cuff arthropathy. POST-OP DIAGNOSIS: Right shoulder rotator cuff arthropathy. OPERATIVE PROCEDURE: Right shoulder reverse shoulder arthroplasty and open biceps tenodesis. INDICATIONS: Faby Hobson is a 73-year-old female with bilateral shoulder rotator cuff arthropathy. The right side has severe superior migration of the humeral head. She also has osteopenia, osteoporosis, and she has failed conservative management. She has elected to proceed with surgical treatment. Risks and benefits were discussed at length and included, but are not limited to bleeding, infection; damage to nerves, vessels, surrounding structures; wound nonhealing, persistent pain, need for further surgery, scarring, stiffness , incomplete relief of symptoms, risks of anesthesia. IMPLANTS USED: Tornier Aequalis Reversed II 25 x 30 threaded baseplate with a 36 mm centered glenosphere and Aequalis Ascend Flex 4B stem with a centered reverse tray, and a +6 poly. COMPLICATIONS: None. ESTIMATED BLOOD LOSS: 150 cc. OUTPUT: Drains x1. DESCRIPTION OF PROCEDURE: The patient was greeted in the preoperative area by the attending surgeon. Correct extremity was marked and consent was confirmed. The patient underwent interscalene nerve block by the anesthesiologist. The patient was then brought back to the operating suite where she was placed on the operating table and well padded. She underwent general anesthesia and endotracheal intubation, after which she was appropriately positioned. The right arm was then prepped and draped in the usual sterile fashion beginning with chlorhexidine soap, scrub, and alcohol wipe and a final prep with ChloraPrep. After appropriate surgical pause indicating side, site, procedure, and administration of antibiotics, a 15-blade was used to make an incision in line with the deltopectoral incision. Soft tissues were carefully dissected to expose the deltopectoral interval. The deltoid and the cephalic were taken laterally. There was a significant amount of scar tissue and adhesions. The clavipectoral fascia was identified. CA ligament was released. The lateral aspect of the short head of the biceps was identified and released. There was abundant scar tissue present, which was carefully released using the blunt Quintanilla as well as the Mir. This helped to loosen the shoulder. She was able to be passively forward flexed to about 140 prior to surgery, abduct to 90, externally rotate to about 25 degrees. The pec was identified and the proximal 1.5 cm was then released. The biceps was then tenodesed to the pec and tenotomized proximal to that. It was followed proximally. The anatomy was somewhat distorted, but the biceps was visualized going into the shoulder. The adhesions were carefully released. The subscap was identified and released in a subscap-peel type fashion to expose the glenohumeral joint, which had significant grade 4 humeral changes with obvious superior migration. There was obvious full-thickness tear of the supraspinatus tendon. The head was then gently externally rotated and brought through the wound and exposed. Care was taken because the bone quality was quite poor. Once the head and neck were exposed quite well, the sagittal saw was then used to make a generous cut. The marrow cavity was filled with fatty tissue. There was a subchondral cyst that was present. The canal finder was used to find the canal. The broaching then began. A size 4 was found to be appropriate. Protection plate was placed and then attention was directed to the glenoid. The glenoid had obvious deformity particularly superiorly and anteriorly with osteophytes. The labrum, which was identified posteriorly and superiorly, was release en candy. The subscap was released off the glenohumeral ligaments and adhesions. The posterior retractor was placed in the glenoid carefully. Again, the bone quality was not great. Once all the soft tissue was released around the glenoid to expose it fully, the guidewire was placed inferiorly with 10 mm from the most inferior portion of the glenoid. The patient does have some kyphoscoliosis, so the anatomy was somewhat distorted, but it was placed in the center. The 25-mm reamer was then used to ream the glenoid. The footprint reamer was the used to help ream. This helped to remove the osteophytes anteriorly. The 8 mm cannulated drill bit was then drilled and 6.5 mm was drilled to a depth of about 25 mm. A length of 30 mm was chosen. The final glenoid baseplate was then placed with excellent purchase. Three interlocking screws were then placed with excellent purchase. The glenosphere was impacted and secured with a set screw and attention was directed to the humerus. The head was brought back through the wound. The trialing was tested again to make sure that the stem had not loosened. The size 4 was chosen again and had a good fit. The centered threaded trial was then placed as well as the trial + 6 poly. The shoulder was then reduced and taken through range of motion, forward flexion to about 145, abduction to 90, external rotation to about 60, internal rotation to the buttocks, appropriate amount of shuck and well positioned. The final implants were then chosen. Two transosseous tunnels were then made in the humerus for later subscap repair. The implant was prepared on the back table by the attending surgeon. It was then impacted into position. The shoulder was then reduced and taken through range of motion and was found to be symmetric. The wounds were then copiously irrigated with sterile saline. The subscap was then closed significantly past Ethibond sutures. The wound was irrigated again. A drain was placed. The deltopectoral interval was closed with #2 Ethibond sutures. The wounds were then copiously irrigated again. The skin was closed in layers with 3-0 Monocryl. The sterile dressings were applied. Cryo/Cuff and UltraSling were applied. She was awoken from anesthesia and transferred to the PACU in stable condition. POSTOPERATIVE PLAN: She will be nonweightbearing. She will be in the sling for 6 weeks. She will be discharged on pain medication. DVT prophylaxis was considered, but deferred due to no previous personal or family history. I will see the patient back in 10 to 14 days. We will follow the patient in-house. She will be admitted for 24 hours for antibiotics. DVT prophylaxis will be Lovenox while in-house, she will not go home on any. The drain will be discontinued on postop day 1. [id number]/[facility] #: [id number] [place]
[2018-05-06] MEDS: Vancomycin(*) 1,000 MG in NS 0.9% 250 ML* 250 ML IVPB SCH (20:44)
[2018-05-06] MEDS: Docusate CAP* 100 MG PO SCH (20:53)
[2018-05-06] MEDS: Bumetanide TAB* 1 MG PO SCH (20:54)
[2018-05-07] MEDS: oxyCODONE/Acetamin 5/325 MG* TAB PO PRN ×3 (01:42→12:34)
[2018-05-07] MEDS: Acetaminophen TAB* 325 MG PO SCH ×2 (01:42→08:19)
[2018-05-07] MEDS: oxyCODONE TAB* 5 MG TAB PO PRN ×2 (03:37→10:30)
[2018-05-07 06:21] LABS: Hematocrit 27 % (35-47); Hemoglobin 9.1 g/dl (12.0-16.0); Mean Platelet Volume 6.6 fL (7.4-10.4); Platelet Count 335 10^3/ul (150-450)
[2018-05-07 06:38] LABS: Calcium 8.1 mg/dL (8.6-10.3); EGFR African American 123.6 (>60); EGFR Non-African American 102.2 (>60); Potassium 3.5 mmol/L (3.5-5.0)
[2018-05-07] MEDS ORDERED: NS 0.9% 1000 ML** 1,000 ML IV SCH (07:45)
[2018-05-07] MEDS: Spironolactone TAB* 25 MG PO SCH ×2 (08:25→11:15)
[2018-05-07] MEDS: Bumetanide TAB* 1 MG PO SCH (08:25)
[2018-05-07] MEDS: Gabapentin CAP(*) 400 MG PO SCH ×2 (08:25→12:34)
[2018-05-07] MEDS: Docusate CAP* 100 MG PO SCH (08:27)
[2018-05-07] MEDS: Vancomycin(*) 1,000 MG in NS 0.9% 250 ML* 250 ML IVPB SCH (08:30)
[2018-05-07] MEDS ORDERED: Pantoprazole TAB * 40 MG TAB PO SCH (09:00)
--- NOTE | 2018-05-07 09:26 | PN ---
Subjective Date of Service: 05/07/18 Interval History: Pt is anxious to go home. We discussed use of her diuretics, Spironolactone and Bumex, and she states that it is the only combination that controls the swelling in her extremities, and pleads that we don't change it. She denies CP , SOB, cough, fever, abd pain, n/v/d/c, extremity pain, calf tenderness. Positive for neuropathy in fingers, toes, and shoulder pain. She feels the pain is relatively well controlled with medications. Objective Active Medications: Acetaminophen (Tylenol Tab*) 975 mg PO 0200,1000,1800 JASON Albuterol (Ventolin Hfa Inhaler*) 2 puff INH Q6H PRN Bisacodyl (Dulcolax Supp*) 10 mg AL DAILY PRN Bumetanide (Bumex Tab*) 1 mg PO BID JASON Cyclobenzaprine HCl (Flexeril Tab*) 5 mg PO TID PRN Diphenhydramine HCl (Benadryl Iv*) 25 mg IV Q6H PRN Diphenhydramine HCl (Benadryl Po*) 25 mg PO Q6H PRN Docusate Sodium (Colace Cap*) 100 mg PO BID JASON Enoxaparin Sodium (Lovenox(*)) 40 mg SUBCUT Q24H JASON Gabapentin (Neurontin Cap(*)) 400 mg PO QID JASON Vancomycin HCl 1,000 mg/ (Sodium Chloride) 250 mls @ 166.667 mls/hr IVPB Q12H JASON Sodium Chloride (Ns 0.9% 1000 Ml) 1,000 mls @ 75 mls/hr IV PER RATE JASON Lactulose (Lactulose*) 30 ml PO Q6H PRN Magnesium Hydroxide (Milk Of Magnesia Liq*) 30 ml PO Q6H PRN Mometasone Furoate (Asmanex 220 Mcg Mdi *) 1 puff INH DAILY PRN Morphine Sulfate (Morphine Inj ((Syringe))*) 2 mg IV Q2H PRN Multivitamins ( Vitamin Tab*) 1 tab PO DAILY@1200 JASON Ondansetron HCl (Zofran Inj*) 4 mg IV Q6H PRN Ondansetron HCl (Zofran Odt Tab*) 4 mg PO Q6H PRN Oxycodone HCl (Roxycodone Tab*) 10 mg PO Q4H PRN Oxycodone/Acetaminophen (Percocet 5/325 Tab*) 1 tab PO Q4H PRN Oxycodone/Acetaminophen (Percocet 5/325 Tab*) 2 tab PO Q4H PRN Pantoprazole Sodium (Protonix Tab*) 40 mg PO QAM [facility] Pharmacy Consult (Vancomycin Per Pharmacy*) 1 note FOLLOW UP .VANC PER PHARMACY [facility] Polyethylene Glycol/Electrolytes (Miralax*) 17 gm PO DAILY PRN Spironolactone (Aldactone Tab*) 25 mg PO TID WITH MEALS [facility] Temazepam (Restoril Cap*) 15 mg PO BEDTIME PRN Tramadol HCl (Ultram*) 50 mg PO Q6H PRN Vital Signs: Temp Pulse Resp BP Pulse Ox 98.4 F 79 16 102/46 96 05/07/18 04:07 05/07/18 04:07 05/07/18 08:26 05/07/18 04:07 05/07/18 04:07 Oxygen Devices in Use Now: None Appearance: Pt is sitting up in bed, HOB elevated, with R arm in sling. She appears comfortable, well, and in no acute distress. Eyes: No Scleral Icterus, PERRLA Ears/Nose/Mouth/Throat: NL Teeth, Lips, Gums, Clear Oropharnyx, Mucous Membranes Moist Neck: NL Appearance and Movements; NL JVP, Trachea Midline, - - Without carotid bruits Respiratory: Symmetrical Chest Expansion and Respiratory Effort, Clear to Auscultation Cardiovascular: RRR, No Edema, - - Systolic murmur present; no rubs, clicks, gallops. No JVD. Abdominal: NL Sounds; No Tenderness; No Distention, No Hepatosplenomegaly Extremities: No Edema, No Clubbing, Cyanosis, - - Radial and pedal pulses 2+ b/ l. Neurological: Alert and Oriented x 3, - - Sentation decreased at distal fingers , toes. Result Diagrams: 05/07/18 05:12 05/07/18 05:12 Assess/Plan/Problems-Billing Assessment: Pt is a 73 yof with PMHx HTN, asthma, hyponatremia, scoliosis who presents s/p R shoulder arthroplasty. - Patient Problems (1) Status post reverse arthroplasty of right shoulder Comment: -NWB R arm, sling per ortho -Management per ortho team (2) Hyponatremia Comment: -Na is 128, which is within pt's baseline of 124-130. -LR changed to NS at 75cc/h -Continue Spironolactone, Bumex (3) Hypertension Comment: -WNL; BP lower at night -Continue spironolactone, bumex (4) Murmur Comment: -No cardiology note, echo noted on pt's chart -Follow up with cardiology as outpatient (5) ABENA positive Comment: -Anti-CCP ab ordered (6) DVT prophylaxis (7) Full code status Status and Disposition: Inpatient. Discharge per ortho team.
--- NOTE | 2018-05-07 11:12 | PN ---
Progress Note - Progress Note Date of Service: 05/07/18 SOAP: Subjective: []Pt seen and examined at bedside. She feels well without CP, SOB, dizziness or nausea. Right shoulder pain is well controlled Objective: []General: Well appearing, NAD RUE: drain pulled with tip intact and tolerated well by patient. Able to Flex and extend wrist and all MTPs. Able to produce Okay and thumbs up sign. Sensation intact to light touch distally, capillary refill less than two seconds distally, radial pulse 2+ Assessment: []POD 1 sp reverse arthroplasty R total shoulder Plan: []NWB RUE No active ROM of shoulder, Passive ROM limited to FF, ABD 90 degrees, ER 25 degrees NS Fluid running for soft BP and Na replacement. Chronically low Na DC to home today Vital Signs Temp 98.7 F 05/07/18 07:31 Pulse 82 05/07/18 07:31 Resp 16 05/07/18 10:35 BP 122/54 05/07/18 07:31 Pulse Ox 91 05/07/18 07:31 Intake & Output 05/06/18 05/07/18 05/07/18 18:59 06:59 18:59 Intake Total 1482 960 Output Total 900 Balance 1482 60 Intake: IV Fluids 1482 LR 232 NS 1000 VANCOMYCIN 900MG IN 250ML 250 NS Oral 960 Output: Hemovac Amount #1 300 Urine 600 Other: Estimated Void Medium Laboratory Last Values Hgb 9.1 g/dl (12.0-16.0) L 05/07/18 05:12 Hct 27 % (35-47) L 05/07/18 05:12 Plt Count 335 10^3/ul (150-450) 05/07/18 05:12 MPV 6.6 fL (7.4-10.4) L 05/07/18 05:12 Sodium 128 mmol/L (135-145) L 05/07/18 05:12 Potassium 3.5 mmol/L (3.5-5.0) 05/07/18 05:12 Chloride 96 mmol/L (101-111) L 05/07/18 05:12 Carbon Dioxide 27 mmol/L (22-32) 05/07/18 05:12 Anion Gap 5 mmol/L (2-11) 05/07/18 05:12 BUN 11 mg/dL (6-24) 05/07/18 05:12 Creatinine 0.58 mg/dL (0.51-0.95) 05/07/18 05:12 Est GFR ( Amer) 123.6 (>60) 05/07/18 05:12 Est GFR (Non-Af Amer) 102.2 (>60) 05/07/18 05:12 BUN/Creatinine Ratio 19.0 (8-20) 05/07/18 05:12 Glucose 167 mg/dL (70-100) H 05/07/18 05:12 Calcium 8.1 mg/dL (8.6-10.3) L 05/07/18 05:12
[2018-05-07] MEDS: Prenatal Vitamin TAB PO SCH (11:15)
--- NOTE | 2018-05-07 11:22 | PN ---
Progress Note - Progress Note Date of Service: 05/07/18 Note: Pt seen at 6:20 AM Pt was seen this morning and had just fallen asleep. Per nursing pain control was difficult until a few hours before. AFVSS NAD sleeping. extremity warm and well perfused A/p POD#1 from R shoulder reverse replacement NWB sling on except for exercises will see at post op visit in 2 weeks d/c when stable
[2018-05-07] MEDS ORDERED: Enoxaparin(*) 40 MG/0.4 ML SYR SUBCUT SCH (12:00)
[2018-05-07 12:20] VITALS: BP 110/51
--- NOTE | 2018-05-07 16:33 | DS ---
AMENDED REPORT NOW INCLUDES COSIGNER DESIGNATION AND DATE OF DISCHARGE DISCHARGE SUMMARY: DATE OF ADMISSION: 05/06/18 DATE OF DISCHARGE: 05/07/18 ATTENDING PROVIDER: Dr. Lloyd Baker.* (DICTATED BY KAMILAH STAUFFER) PREOPERATIVE DIAGNOSIS: Right shoulder rotator cuff arthropathy. OPERATIVE PROCEDURE: Right total shoulder reverse arthroplasty and open biceps tenodesis. HISTORY: Faby is a 73-year-old female with bilateral shoulder rotator cuff arthropathy. The right side has severe superior migration of the humeral head. She has had osteopenia, osteoporosis and failed conservative management. She elected to proceed with surgical treatment. HOSPITAL COURSE: Patient was admitted to [facility] on 05/06/18. She underwent a right shoulder reverse arthroplasty and open biceps tenodesis without complication. On postop day 1, she was well appearing, in no acute distress. Drain was pulled with tip intact and tolerated well by the patient. Able to flex and extend wrist and all MCPs. Able to produce OK sign and thumbs up. Sensation intact to light touch distally. Capillary refill less than 2 seconds distally. Radial pulse 2+. She was seen by our hospitalist service as well for management of medical comorbidities. No change in home medications. Maintenance fluid was changed from lactated Ringer's to normal saline at 75 cc per hour. Patient is chronically hyponatremic. She was deemed to be medically and orthopedically stable for discharge to home. DISCHARGE MEDICATIONS: 1. Spironolactone 25 mg p.o. t.i.d. with meals. 2. Flovent HFA 110 mcg 1 puff inhaled b.i.d. p.r.n. 3. Albuterol inhaler 2 puffs inhaled q.6 p.r.n. 4. Gabapentin 400 mg p.o. four times daily. 5. Bumex 1 mg p.o. b.i.d. 6. Vitamin D3 at 2000 units p.o. q.a.m. 7. Caltrate 600 plus D 1 tab per instructions. 8. Ibuprofen 200 mg 2 to 3 tabs per instructions. 9. Fexofenadine 180 mg p.o. per instructions. 10. Multivitamin once daily. 11. Pantoprazole 40 mg p.o. q.a.m. 12. Simethicone 125 mg p.o. once p.r.n. 13. Beano 150 units once p.r.n. 14. Docusate 100 mg p.o. b.i.d. 15. Percocet 5/325 one to two tabs every 4 to 6 hours as needed for pain, max daily dose of 8. 16. Acetaminophen 975 mg p.o. q.8 hours p.r.n. fever or pain, not to exceed 4000 mg from all sources per day. DISCHARGE INSTRUCTIONS: The patient will be discharged to home. She is nonweightbearing for operative upper extremity. No active range of motion at the shoulder. Passive range of motion as done with PT, limited to forward flexion, abduction of 90 degrees, external rotation to 25 degrees. Continue elbow, wrist and hand pendulum as shown by Physical Therapy. Wound care: Okay to shower after the third postoperative day. Do not submerge the wound. Pain control: Percocet 5/325 one to two tabs by mouth every 4 to 6 hours as needed for pain, max daily dose of 8. Please call our office with any questions or concerns. Follow up with Dr. Baker in 2 weeks. Sling is to be worn at all times aside from for exercises. KAMILAH CRANE [id number]/[facility] #: [id number] MTDKarol
== END 2018-05-07 14:10 | disposition home health service (06) | DRG 483 ==
LOC: AA 05-06 05:31 → SSU 05-06 10:03
PROVIDERS: ADMIT Orthopaedic Surgery; ATTEND Orthopaedic Surgery
PROC: 0RRJ00Z Replacement of Right Shoulder Joint with Reverse Ball and Socket Synthetic Substitute, Open Approach (ICD-10-PCS; principal; 2018-05-06 07:30)
DX: M19.011 Primary osteoarthritis, right shoulder (principal); E87.1 Hypo-osmolality and hyponatremia; M85.811 Other specified disorders of bone density and structure, right shoulder; M81.0 Age-related osteoporosis without current pathological fracture; M25.711 Osteophyte, right shoulder; K22.70 Barrett's esophagus without dysplasia; M41.9 Scoliosis, unspecified; G62.9 Polyneuropathy, unspecified; R01.1 Cardiac murmur, unspecified; R76.0 Raised antibody titer; F32.9 Major depressive disorder, single episode, unspecified; K74.60 Unspecified cirrhosis of liver; M75.101 Unspecified rotator cuff tear or rupture of right shoulder, not specified as traumatic; I10 Essential (primary) hypertension; J45.909 Unspecified asthma, uncomplicated; M48.00 Spinal stenosis, site unspecified; M19.042 Primary osteoarthritis, left hand; M85.842 Other specified disorders of bone density and structure, left hand; Z85.828 Personal history of other malignant neoplasm of skin; Z88.1 Allergy status to other antibiotic agents; Z91.013 Allergy to seafood; Z88.8 Allergy status to other drugs, medicaments and biological substances; Z80.1 Family history of malignant neoplasm of trachea, bronchus and lung; Z90.49 Acquired absence of other specified parts of digestive tract; Z92.21 Personal history of antineoplastic chemotherapy; Z85.72 Personal history of non-Hodgkin lymphomas; Z80.7 Family history of other malignant neoplasms of lymphoid, hematopoietic and related tissues
CPT/HCPCS: 36415; 80048; 85014; 85018; 85049; 86200; A9270-GY; C1713; C1776; G8978-GP-CI; G8979-GP-CI; G8980-GP-CI; G8987-GO-CK; G8988-GO-CK; G8989-GO-CK; J0330; J1650; J1885; J2250; J2405; J2704; J2795; J3010; J3370

== ENCOUNTER 2018-12-23 10:33 | Emergency (ER) | payer MEDICARE, OTHER ==
--- NOTE | 2018-12-23 10:51 | ED ---
Syncope/Near Syncope - HPI Summary HPI Summary: This patient is a 73 year old F arriving via ambulance to [facility] with a chief complaint of fall with a head injury since 12/23/18 in AM. Patient states that [place]. Patient states that she was removing the tarp from her trunk and had not realized how heavy the tarp was. As a result the patient states that she dropped the tarp and fell backwards hitting her head. Pt denies LOC, states she remembers the events clearly before and after the fall. Pt was able to get up on her own and notify EMS. Patient states that she lives at home alone and notified her neighbor that she was coming to the Emergency Department. The patient rates the pain 3/10 in severity. Pt did not take pain medication prior to coming to the ED. Symptoms aggravated by nothing. Symptoms alleviated by nothing. EMS reports an occipital laceration. Pt states she is worried about her right shoulder after this fall, since it was replaced by Dr. Baker in May 2018. Patient denies SOB, DUNHAM, neck pain, rib pain and CP. Patient states that she does not take blood thinners. Patient has a PMHx of right shoulder replacement on May 02, 2018 and scoliosis. Patient states that she had lymphoma lesion removal in 1992 that was under her right arm. Vital signs while in room: HR 82 bpm, BP 148/87 , O2 sat 99% Home Medications Medication Instructions Recorded Confirmed Type Spironolactone [Aldactone 25 MG-] 25 mg PO TID WITH MEALS 10/17/15 05/06/18 History Albuterol HFA INHALER* [Ventolin 2 puff INH Q6H PRN 12/24/17 05/06/18 History HFA Inhaler*] Bumetanide TAB* [Bumex 1 MG TAB*] 1 mg PO BID 12/24/17 05/06/18 History Fluticasone HFA 110 mcg(NF) 1 puff INH BID PRN 12/24/17 05/06/18 History [Flovent HFA 110 mcg(NF)] Gabapentin CAP(*) [Neurontin 400 400 mg PO QID 12/24/17 05/06/18 History mg CAP(*)] Fox/D3/Mag11/Zinc/Puff Ironer/Vic/Bor 1 tab PO SEE INSTRUCTIONS 12/30/17 05/06/18 History [Caltrate 600+D Plus Tablet] Cholecalciferol (Vitamin D3) 2,000 unit PO QAM 12/30/17 05/06/18 History [Vitamin D3] [id number] [Beano] 1 tab.chew PO ONCE PRN 04/24/18 05/06/18 History Fexofenadine HCl 180 mg PO SEE INSTRUCTIONS 04/24/18 05/06/18 History Ibuprofen TAB* [Advil TAB*] 2 - 3 tab PO SEE INSTRUCTIONS 04/24/18 05/06/18 History Multivitamin [One Daily] 1 each PO SEE INSTRUCTIONS 04/24/18 05/06/18 History Pantoprazole TAB * [Protonix TAB*] 40 mg PO QAM 04/24/18 05/06/18 History Simethicone [Gas-X] 125 mg PO ONCE PRN 04/24/18 05/06/18 History Acetaminophen TAB* [Tylenol TAB*] 975 mg PO 0200,1000,1800 PRN tab 05/07/18 Rx Docusate CAP* [Colace Cap*] 100 mg PO BID #90 cap 05/07/18 Rx oxyCODONE/Acetamin 5/325 MG* 1 tab PO Q4H PRN tab MDD 8 05/07/18 Rx [Percocet 5/325 TAB*] oxyCODONE/Acetamin 5/325 MG* 2 tab PO Q4H PRN #50 tab MDD 8 05/07/18 Rx [Percocet 5/325 TAB*] Allergies Allergy/AdvReac Type Severity Reaction Status Date / Time cephalexin [From Keflex] Allergy Rash And Verified 05/06/18 06:13 Itching Cephalosporins Allergy Unknown Verified 05/06/18 06:13 Reaction Details shellfish derived Allergy Unknown Verified 05/06/18 06:13 Reaction Details - History Of Current Complaint Chief Complaint: EDHeadInjury Time Seen by Provider: 12/23/18 10:45 Hx Obtained From: Patient, EMS Onset/Duration: Sudden Onset, Still Present Timing: Constant Context: Unwitnessed, Other - no LOC Activity At Onset: Exertion Associated Head Trauma: Yes Aggravating Factor(s): Nothing Alleviating Factor(s): Nothing Associated Signs And Symptoms: Head Trauma (Recent) - with occipital laceration , Other - right shoulder pain Frequency: Episodes x___ - 1, Episodes Lasting ____ (in Mins/Days/Weeks/Years) - minutes - Allergies/Home Medications Allergies/Adverse Reactions: Allergies Allergy/AdvReac Type Severity Reaction Status Date / Time cephalexin [From Keflex] Allergy Rash And Verified 05/06/18 06:13 Itching Cephalosporins Allergy Unknown Verified 05/06/18 06:13 Reaction Details shellfish derived Allergy Unknown Verified 05/06/18 06:13 Reaction Details Home Medications: Home Medications Gabapentin CAP(*) [Neurontin 400 mg CAP(*)] 800 mg PO BEDTIME 12/23/18 [History Confirmed 12/23/18] PMH/Surg Hx/FS Hx/Imm Hx Endocrine/Hematology History: Reports: Hx Bone Marrow Disease - NON-HODGKINS LYMPHOMA Denies: Hx Diabetes Cardiovascular History: Reports: Hx Hypertension Denies: Hx Pacemaker/ICD GI History: Reports: Hx Gastroesophageal Reflux Disease, Other GI Disorders - ROLDAN'S ESOPHAGUS History: Denies: Hx Renal Disease Musculoskeletal History: Reports: Hx Arthritis - OSTEO, Hx Orthopedic Injury - bilateral rotator cuff tears , Hx Scoliosis, Other Musculoskeletal History - LEFT SHOULDER CORTISONE INJ. 04/24/18; right shoulder replacement 05/2018 Denies: Hx Osteoporosis Sensory History: Reports: Hx Contacts or Glasses - READING GLASSES Denies: Hx Hearing Aid Opthamlomology History: Reports: Hx Contacts or Glasses - READING GLASSES Psychiatric History: Denies: Hx Panic Disorder - Cancer History Cancer Type, Location and Year: hx of lymphoma 20 yrs ago gone now post chemo Hx Chemotherapy: Yes - LYMPHOMA 93/94 Hx Radiation Therapy: No - Surgical History Surgical History: Yes Surgery Procedure, Year, and Place: CHOLECYSTECTOMY AGE 26 AT SAME TIME APPY DRAIN TO LEFT ABD. 1992 - LYMPH NODE REMOVED FROM Rt AXILLARY AREA - LYMPHOMA Hx Anesthesia Reactions: No - Immunization History Date of Tetanus Vaccine: uncertain 11/2018 Infectious Disease History: No - Family History Known Family History: Positive: Other - Cancer, Mother and Cholecystitis, Father - Social History Lives: Alone Alcohol Use: None Alcohol Amount: NONE SINCE 2003 Substance Use Type: Reports: None Hx Tobacco Use: No Smoking Status (MU): Never Smoked Tobacco Review of Systems Constitutional: Negative Eyes: Negative ENT: Negative Negative: Chest Pain Negative: Shortness Of Breath Gastrointestinal: Negative Positive: no symptoms reported Negative: Other - Negative rib pain and neck pain Positive: Other - occipital laceration Negative: Headache Psychological: Normal All Other Systems Reviewed And Are Negative: Yes Physical Exam - Summary Physical Exam Summary: Appearance: Well-appearing, minimal pain distress, well-nourished Skin: Warm, color reflects adequate perfusion, dry, well healed scar on right anterior shoulder to biceps well heal scar in axilla, superficial scalp laceration post occiput with bleeding controlled Head: Apparent trauma: 5 cm hematoma in the occipital area, superficial abrasion over hematoma and 1 cm curvilinear laceration on hematoma with bleeding controlled, tender on hematoma, no depressed skull fx palpated, Eyes: Conjunctiva clear, PERRL, EOMI, no nystagmus ENT: Normal inspection, no Smart's sign, no fluid from ears or nose Neck: Supple, no nodes, no JVD, no spinal tenderness Respiratory: Lungs clear, normal breath sounds, no respiratory distress Cardio: RRR, No murmur, pulses normal, brisk capillary refill Abdomen: Soft, nontender, well healed scar on mid abdomen Bowel sounds: Present Musculoskeletal: Strength Intact/ROM intact, right shoulder without deformity, pain on palpation anteriorly and full ROM;axillary nerve intact on right, distal pulses intact, no bony tenderness of right elbow or wrist, no bony tenderness of the rest of pt's extremities, no bilateral rib tenderness, no calf tenderness, no edema, left curved scoliosis with obvious deformity at lumbar spine, minimal spinal and para tenderness in lumbar spine area Psychological: Normal Neuro: A&O x3, CN II-XII intact, motor function 5/5, sensation intact, cerebellar normal, muscle tone normal, no focal deficit GCS: 15 Triage Information Reviewed: Yes Vital Signs Reviewed: Yes Diagnostics - Laboratory Lab Statement: Any lab studies that have been ordered have been reviewed, and results considered in the medical decision making process. - Radiology Shoulder Xray Radiology Interpretation Completed By: Radiologist Summary of Radiographic Findings: Shoulder Xray reveals, per radiologist, IMPRESSION: STATUS POST RIGHT GLENOHUMERAL ARTHROPLASTY. ED Physician has reviewed this report. - CT Brain CT CT Interpretation Completed By: Radiologist Summary of CT Findings: Brain CT reveals, per radiologist, IMPRESSION: NO ACUTE INTRACRANIAL PATHOLOGY. ED Physician has reviewed this report. Cervical Spine CT CT Interpretation Completed By: Radiologist Summary of CT Findings: Cervical Spine CT reveals, per radiologist, IMPRESSION: Grade 1 spondylolisthesis of C3 on 4 C4 on 5 without definite evidence of. fracture. Facet arthropathy is noted at C3-C4 and C4-C5 bilaterally. Spondylolisthesis is similar to that identified on CT scan dated March 06, 2004. ED Physician has reviewed this report. Re-Evaluation - Re-Evaluation First Eval Re-Evaluation Time: 12:08 Change: Improved Comment: Dr. Gomez discussed plan with patient. Patient is alert and bleeding remains controlled. Dr. Gomez answered all questions to best of her ability. Patients pain is controlled. Course/Dx Course Of Treatment: This patient is a 73 year old F arriving via ambulance to [facility] with a chief complaint of fall with a head injury since 12/23/18 in AM. Pt has a scalp hematoma on her occiput and a superficial curvilinear laceration that has bleeding controlled and does not need sutures. Pt is s/p right shoulder replacement in May 2018 and also has right shoulder pain, but no deformity and full ROM. Right Shoulder Xray reveals, per radiologist, IMPRESSION : STATUS POST RIGHT GLENOHUMERAL ARTHROPLASTY. ED Physician has reviewed this report. Brain CT reveals, per radiologist, IMPRESSION: NO ACUTE INTRACRANIAL PATHOLOGY. ED Physician has reviewed this report. Cervical Spine CT reveals, per radiologist, IMPRESSION: Grade 1 spondylolisthesis of C3 on 4 C4 on 5 without definite evidence of fracture. Facet arthropathy is noted at C3-C4 and C4-C5 bilaterally. Spondylolisthesis is similar to that identified on CT scan dated March 06, 2004. ED Physician has reviewed this report. Patient will be discharged and follow up from Dr. Briana Medrano. The patient is agreeable with this plan. - Diagnoses Differential Diagnosis/HQI/PQRI: Positive: Dysrhythmia, Hypoglycemia, Hypovolemia, Seizure, Transient Ischemic Attack, Vasovagal Episode, Other - mechanical fall Provider Diagnoses: Hematoma of occipital surface of head, Contusion of shoulder, right, Status post replacement of right shoulder joint, Head injury due to trauma, Occipital scalp laceration, Fall from standing Is Visit Related: No Discharge ED - Sign-Out/Discharge Documenting (check all that apply): Patient Departure - discharge to home with friend driving pt home Patient Received Moderate/Deep Sedation with Procedure: No - Discharge Plan Condition: Stable Disposition: HOME Patient Education Materials: Head Injury (ED), Shoulder Sprain (ED) Referrals: Briana Medrano MD [Primary Care Provider] - 2 Days Lloyd Baker MD [Medical Doctor] - If Needed Additional Instructions: The CT of your brain and your cervical spine did not show any fractures or any new findings. The shoulder xray showed no dislocation or fracture. We gave you copies of each of these reports. You may continue your usual pain medication as directed. But Dr. Gomez recommends that you do not take any narcotic for at least 24 hrs. Have definite follow up with Dr. Medrano for the head injury, and Dr. Baker as scheduled or as needed for the shoulder injury. We have given directions for a shoulder sprain, but we feel you only bruised the shoulder and did not sprain it. There were no instructions in the computer for shoulder injury or contusion, so therefore we gave you shoulder sprain instructions, because it does give you the signs and symptoms for reasons to seek further care for the shoulder. Your head injury was not a true concussion or a mild concussion at most, but you will need follow up care to make sure that the head injury and the scalp hematoma do not result in worsening symptoms. Please return to the ER if you have any new or worsening symptoms. - Billing Disposition and Condition Condition: STABLE Disposition: Home - Attestation Statements Document Initiated by Sudeep: Yes Documenting Netoibe: Shannan Infante Provider For Whom Sudeep is Documenting (Include Credential): Dr. Marjorie Gomez MD Scribe Attestation: Shannan Haji scribed for Dr. Marjorie Gomez MD on 12/23/18 at 235. Scribe Documentation Reviewed: Yes Provider Attestation: The documentation as recorded by the Shannan pagan accurately reflects the service I personally performed and the decisions made by me, Dr. Marjorie Gomez MD Status of Scribe Document: Viewed
--- OUTSIDE RECORDS SUMMARY | 2018-12-23 11:57 | XMS REPORT | Continuity of Care Document ---
:1945 External Reference #:[id number] Author Name Merle Weber O.D. Address [address] [place] [id number] Care Team Providers Name Role Phone Briana Medrano MD - Internal Care Team Information [employer] [phone] Medicine Problems Active Problems Provider Date Lim's esophagus Onset: History of non-Hodgkins lymphoma Onset: Hypertension Onset: Nasal sinus problem Onset: Note: trouble with Scoliosis Onset: Pinched nerve Onset: Chronic back pain Onset: Combined form of senile cataract Merle Weber O.D. Onset: 09/15/2015 Vitreous degeneration Merle Weber O.D. Onset: 12/13/2015 Nuclear senile cataract Merle Weber O.D. Onset: 12/13/2015 Osteoarthritis Onset: Social History Type Date Description Comments Sex Unknown ETOH Use Denies alcohol use Recreational Drug Use Denies Drug Use Tobacco Use Start: Unknown Patient has never smoked Smoking Status Reviewed: 12/14/18 Patient has never smoked Allergies, Adverse Reactions, Alerts Active Allergies Reaction Severity Comments Date Shellfish 09/05/2015 Cephalosporins 09/05/2015 Environmental 10/22/2017 Medications Active Medications SIG Qnty Indications Ordering Provider Date Visine Tears 1 drop both eyes Merle Reveles 10/21/2017 0.2-0.2-1% as needed Mark Weber Solution Bumetanide Unknown 1mg Tablets Spironolactone Unknown 25mg Tablets Gabapentin Unknown 100mg Capsules Fexofenadine HCL Unknown 60mg Tablets Proair HFA as needed Unknown 108(90Base) mcg/Act Aerosol Flovent Diskus as needed Unknown 50mcg/Blist Aerosol Fluticasone Propionate as needed Unknown 50mcg/Act Suspension Advil as needed Unknown 200mg Capsules Multiple Vitamin Unknown Tablets Vitamin D every day Unknown 2000Unit Tablets Oscal 500/200 D-3 Unknown [id number] Tablets Diclofenac Sodium Unknown Cream Pantoprazole Sodium every day Unknown 40mg Solution Rec Immunizations Description No Information Available Vital Signs Description No Information Available Results Description No Information Available Procedures Description No Information Available Medical Devices Description No Information Available Encounters Description No Information Available Assessments Date Code Description Provider 12/14/2018 H25.813 Combined forms of age-related cataract, Merle Weber O.D. bilateral 12/14/2018 H43.813 Vitreous degeneration, bilateral Merle Weber O.D. Plan of Treatment 12/14/2018 - Merle Weber O.D.H25.813 Combined forms of age-related cataract, bilateralComments:You have been diagnosed with cataracts. If you are happy with your vision as it is now, then we willsee you at your next scheduled appointment. If you feel like your vision is getting worse before your scheduled appointment, please call [facility]avia at [phone].Follow up:1 Year Follow Up You can expect to have your eyes dilated at your next visit. If Dr. Weber orders any additional testing, it may require extra time. We recommend that you bring sunglasses, as dilation drops often make you light sensitive until they wear off. We always recommend you bring someone to drive you home if you are uncomfortable driving with your eyes dilated. If you have any questions before your next visit, feel free to call our office at .H43.813 Vitreous degeneration, bilateralComments:You have a Posterior Vitreous Detachment. Please read the pamphlet that was given to you. If you have any changes in your floaters or flashing lights, please contact this office. Functional Status Description No Information Available Mental Status Description No Information Available Referrals Description No Information Available
[2018-12-23 12:30] VITALS: BP 158/90
== END 2018-12-23 12:41 | disposition home or self-care (01) ==
LOC: ED 10:33
DX: S40.011A Contusion of right shoulder, initial encounter (principal); S01.01XA Laceration without foreign body of scalp, initial encounter; S09.90XA Unspecified injury of head, initial encounter; W18.30XA Fall on same level, unspecified, initial encounter; Y93.89 Activity, other specified; Y92.9 Unspecified place or not applicable; Z96.611 Presence of right artificial shoulder joint; M43.12 Spondylolisthesis, cervical region; I10 Essential (primary) hypertension; K22.70 Barrett's esophagus without dysplasia; Z85.72 Personal history of non-Hodgkin lymphomas; Z88.1 Allergy status to other antibiotic agents; Z91.013 Allergy to seafood
CPT/HCPCS: 70450; 72125; 99281

== ENCOUNTER 2019-02-03 05:31 | Inpatient (IN) | payer MEDICARE, OTHER ==
[~2019-02-03 05:31] MED LIST: Buffered Lidocaine 1% SYRIN* 1 ML/SYRINGE INTRADERM ONE; Tranexamic Acid 1,000 MG in NS 0.9% 50 ML* (outpatient use) IV SCH; Vancomycin(*) 1,000 MG in NS 0.9% 250 ML* 250 ML IVPB SCH
--- OUTSIDE RECORDS SUMMARY | 2019-02-03 05:35 | XMS REPORT | Continuity of Care Document ---
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 Medicine Problems Active Problems Provider Date Aftercare following joint replacement surgery Lloyd Baker MD Onset: 2018 Prosthetic arthroplasty of shoulder Lloyd Baker MD Onset: 05/19/2018 Closed fracture of distal end of radius Lloyd Baker MD Onset: 01/01/2018 Wrist joint pain Lloyd Baker MD Onset: 12/11/2017 Full thickness rotator cuff tear Lloyd Baker MD Onset: 07/03/2017 Localized, primary osteoarthritis of the shoulder Lloyd Baker MD Onset: 07/2017 region Social History Type Date Description Comments Sex Unknown ETOH Use Denies alcohol use Tobacco Use Start: Unknown Patient has never smoked Smoking Status Reviewed: 01/19/19 Patient has never smoked Exercise Type/Frequency Exercises sporadically Allergies, Adverse Reactions, Alerts Active Allergies Reaction Severity Comments Date Cephalosporins 05/06/2017 Shellfish-Derived Products 05/06/2017 Keflex Rash 05/06/2017 Clindamycin Facial swelling, Flushing 08/04/2018 Medications Active Medications SIG Qnty Indications Ordering Date Provider Ciprofloxacin HCL Take 1 tab every 12 6tabs Lloyd Baker, 01/26/2019 250mg hours x 3 days Tablets Amoxicillin take 4 tabs 1 hour 4caps Lloyd Baker, 08/04/2018 500mg prior to dental MD Capsules work Docusate Sodium 1 tab every 12 90tabs Lloyd Baker, 05/07/2018 100mg hours as needed for MD Tablets constipation Bumetanide once a week 14tabs Re 04/09/2017 1mg Tablets 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, 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 Spironolactone 1 by mouth every 30tabs Re 04/09/2017 25mg day or as directed 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 Azelastine HCL Use 1 [place] In Each Unknown (Nasal) Nostril Daily 0.15% Solution Fluticasone Use 2 Sprays In Unknown Propionate Each Nostril Daily 50mcg/Act Suspension Proair HFA Inhale 2 Puffs By Unknown 108(90Base) Mouth 4 Times Daily mcg/Act Aerosol as Needed Flovent HFA Inhale 2 Puffs By Unknown 110mcg/Act Mouth Twice Daily Aerosol Gabapentin Take 1 Capsule By Unknown 400mg Mouth Twice Daily Capsules And 2 Capsules AT Bedtime Medications Administered in Office Medication SIG Qnty Indications Ordering Provider Date Triamcinolone (Kenalog) Lloyd Baker MD 10/06/2018 Injection Triamcinolone (Kenalog) Lloyd Baker MD 07/23/2018 Injection Triamcinolone (Kenalog) Lloyd Baker MD 04/24/2018 Injection Triamcinolone (Kenalog) Lloyd Baker MD 01/08/2018 Injection Triamcinolone (Kenalog) Lloyd Baker MD 11/18/2017 Injection Triamcinolone (Kenalog) Lloyd Baker MD 10/07/2017 Injection Triamcinolone (Kenalog) Lloyd Baker MD 08/12/2017 Injection Triamcinolone (Kenalog) Lloyd Baker MD 07/03/2017 Injection Triamcinolone (Kenalog) Lloyd Baker MD 05/06/2017 Injection Immunizations Description No Information Available Vital Signs Date Vital Result Comment 01/19/2019 8:03am Height 58.5 inches 4'10.50" Weight 136.00 lb Heart Rate 108 /min BP Systolic 138 mmHg BP Diastolic 68 mmHg Body Temperature 97.4 F Pain Level 4 BMI (Body Mass Index) 27.9 kg/m2 10/06/2018 7:56am Height 58.5 inches 4'10.50" Weight 130.00 lb Heart Rate 100 /min BP Systolic 138 mmHg BP Diastolic 66 mmHg Body Temperature 98.2 F Pain Level 6 left shoulder BMI (Body Mass Index) 26.7 kg/m2 Results Test Date Facility Test Result H/L Range Note CBC Auto 01/21/2019 [facility] White Blood 9.9 10^3/uL Normal 3.5-10.[address] [place] [address] [phone] Red Blood Count 3.84 10^6/uL Normal 3.70-4.87 Hemoglobin 10.6 g/dL Low 12.0-16.0 Hematocrit 31 % Low 35-47 Mean Corpuscular Volume 80 fL Normal 80-97 Mean Corpuscular Hemoglobin 28 pg Normal 27-31 Mean Corpuscular HGB Conc 34 g/dL Normal 31-36 Red Cell Distribution Width 16 % High 10-15 Platelet Count 516 10^3/uL High 150-450 Mean Platelet Volume 6.7 fL Low 7.4-10.4 Abs Neutrophils 6.5 10^3/uL Normal 1.5-7.7 Abs Lymphocytes 2.4 10^3/uL Normal 1.0-4.8 Abs Monocytes 0.8 10^3/uL Normal 0-0.8 Abs Eosinophils 0.2 10^3/uL Normal 0-0.6 Abs Basophils 0.1 10^3/uL Normal 0-0.2 Abs Nucleated RBC 0.0 10^3/uL Granulocyte % 65.2 % Lymphocyte % 24.2 % Monocyte % 8.2 % Eosinophil % 1.7 % Basophil % 0.7 % Nucleated Red Blood Cells % 0.0 Inr/Protime 01/21/2019 [facility] Inr 1.03 Normal 0.82-1.[address] [place] [address] [phone] Laboratory test 01/21/2019 [facility] Partial 31.5 Normal 26.0 -38.0 3 finding [facility] [place] [place] [address] Time PTT [phone] Comp Metabolic 01/21/2019 [facility] Sodium 128 mmol/L Low 135 -145 [place] [address] [phone] Potassium 4.5 mmol/L Normal 3.5-5.0 Chloride 91 mmol/L Low 101-111 Co2 Carbon Dioxide 27 mmol/L Normal 22-32 Anion Gap 10 mmol/L Normal 2-11 Glucose 73 mg/dL Normal 70-100 Blood Urea Nitrogen 17 mg/dL Normal 6-24 Creatinine 0.85 mg/dL Normal 0.51-0.95 BUN/Creatinine Ratio 20.0 Normal 8-20 Calcium 9.6 mg/dL Normal 8.6-10.3 Total Protein 7.6 g/dL Normal 6.4-8.9 Albumin 4.4 g/dL Normal 3.2-5.2 Globulin 3.2 g/dL Normal 2-4 Albumin/Globulin Ratio 1.4 Normal 1-3 Total Bilirubin 0.40 mg/dL Normal 0.2-1.0 Alkaline Phosphatase 49 U/L Normal 34-104 Alt 15 U/L Normal 7-52 Ast 26 U/L Normal 13-39 Egfr Non- 65.7 >60 Egfr 79.5 >60 4 Type & Screen 01/21/2019 [facility] Patient Blood Type A Positive [address] [place] [address] [phone] Antibody Screen NEGATIVE Urinalysis Profile 01/21/2019 [facility] Urine Color Straw [address] [place] [address] [phone] Urine Appearance Clear Urine Specific Garvin 1.006 Low 1.010-1.030 Urine pH 6.0 Normal 5-9 Urine Urobilinogen Negative Negative Urine Ketones Negative Negative Urine Protein Negative Negative Urine Leukocytes 1+ Abnormal Negative Urine Blood Negative Negative Urine Nitrite Negative Negative Urine Bilirubin Negative Negative Urine Glucose Negative Negative Urine White Blood Cell Trace(0-5/hpf) Absent Urine Red Blood Cell Trace(0-2/hpf) Absent Urine Bacteria Absent Absent Urine Squamous Epithelial Cell Present Abnormal Absent Urine Culture And 01/21/2019 [facility] Urine Culture SEE RESULT [address] [place] [address] [phone] 1 AA 02/03 2 Standard intensity warfarin therapeutic range: 2.0-3.0 High intensity warfarin therapeutic range: 2.5-3.5 3 AA 02/03 4 Because ethnic data is not always readily [...] 15-29 5 Kidney failure <15 (or dialysis) 5 SEE RESULT BELOW Name: FABY HOBSON : [address]: Lloyd Baker MD Acct: [id number] Unit: [id number] AGE: 73 Location: [facility] Re01/21/19 SEX: F Status: REG REF SPEC: [id number] NIGEL: 01/21/19-[address] [facility] [address]: Lloyd Baker MD REQ: [id number] RECD: 01/21/19 STATUS: ANA MENDOZA DR: Briana Medrano MD _ SOURCE: URINE [facility]: ORDERED: Urine Culture Procedure Result Reported Site Urine Culture Final 01/23/19- 0951 ML Organism 1 PSEUDOMONAS AERUGINOSA [place] Count 50-75,000 (Many) CFU/ML 1. PSEUDOMONAS AERUGINOSA [facility] RX --------- ------ Cefazolin >=64 R Cefepime <=1 S Ciprofloxacin <=0.25 S Gentamicin <=1 S Levofloxacin 0.25 S Meropenem <=0.25 S Pipercillin/Tazobactam <=4 S Contact the Microbiology Department for any additional antibiotic reporting. * [facility] - Main Lab . END OF REPORT DEPARTMENT OF PATHOLOGY, [address] [place] [address] Xavi Leigh M.D. Director [facility] # [id number] Procedures Date Code Description Status 10/06/2018 39512 Inj/Aspir Major JT Or Bursa W/ US Completed 06/03/2016 [id number] Mammogram Completed 10/12/2015 [id number] Bone Mineral Density Test Completed 05/25/2015 [id number] Mammogram Completed 05/24/2014 [id number] Mammogram Completed 05/19/2013 [id number] Mammogram Completed 05/20/2012 [id number] Mammogram Completed 05/18/2012 [id number] Mammogram Completed 05/16/2010 [id number] Mammogram Completed 05/03/2009 [id number] Mammogram Completed 02/02/2005 [id number] Bone Mineral Density Test Completed Medical Devices Description No Information Available Encounters Type Date Location Provider Dx Diagnosis Office Visit 12/29/2018 [facility] Amisha Medina MD Z08 Encntr for 11:45a follow-up exam after trtmt for malignant neoplasm Z85.828 Personal history of other malignant neoplasm of skin Office Visit 10/06/2018 8:00a Jasmeet Baker M75.122 Complete [facility] at [facility] tear/ruptr of left shoulder, not trauma Z96.611 Presence of right artificial shoulder joint Office Visit 08/04/2018 8:15a Maximo Saab75.122 Complete [facility]oped[facility] at [facility] tear/ruptr of left shoulder, not trauma Z96.611 Presence of right artificial shoulder joint Assessments Date Code Description Provider 01/19/2019 M75.122 Complete rotator cuff tear or rupture of left Lloyd Baker MD shoulder, not 01/19/2019 M19.012 Primary osteoarthritis, left shoulder Lloyd Baker MD 12/29/2018 Z08 Encounter for follow-up examination after Amisha Medina MD completed treatment for malignant neoplasm 12/29/2018 Z85.828 Personal history of other malignant neoplasm of Amisha Medina MD skin 10/06/2018 M75.122 Complete rotator cuff tear or rupture of left Lloyd Baker MD shoulder, not 10/06/2018 Z96.611 Presence of right artificial shoulder joint Lloyd Baker MD 10/05/2018 M75.122 Complete rotator cuff tear or rupture of left Lloyd Baker MD shoulder, not 10/05/2018 Z96.611 Presence of right artificial shoulder joint Lloyd Baker MD 08/04/2018 M75.122 Complete rotator cuff tear or rupture of left Lloyd Baker MD shoulder, not 08/04/2018 Z96.611 Presence of right artificial shoulder joint Lloyd Baker MD Plan of Treatment Future Appointment(s):02/03/2019 7:30 am - Avril Mora PA-C at [facility] at [id number]/16/2019 1:30 pm - Lloyd Baker MD at [facility] at Txglyn1304/13/2019 7:45 am - Amisha Medina MD at [facility]02/03/2019 7:30 am - Lloyd Baker MD at [facility] at Qfvxdd6501/19/2019 - Lloyd Baker MDM75.122 Complete rotator cuff tear or rupture of left shoulder, notFollow up:Follow up: 10-14 days post opM19.012 Primary osteoarthritis, left shoulder Functional Status Description No Information Available Mental Status Description No Information Available Referrals Description No Information Available
--- OUTSIDE RECORDS SUMMARY | 2019-02-03 05:35 | XMS REPORT | Continuity of Care Document ---
:1945 External Reference #:[id number] Author Name Lloyd Baker MD (transmitted by agent of provider Coni Posada) Address [address] [place] [address] Care Team Providers Name Role Phone Briana Medrano MD - Internal Care Team Information Terrazzo Supervisor Medicine Problems Active Problems Provider Date Aftercare [...] Medications SIG Qnty Indications Ordering Date Provider Amoxicillin take 4 tabs 1 hour 4caps Lloyd Baker 08/04/2018 500mg prior to dental MD Capsules work Docusate Sodium 1 tab every 12 90tabs Lloyd Baker 05/07/2018 100mg hours as needed for MD Tablets constipation Bumetanide once a week 14tabs Re 04/09/2017 1mg Tablets 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, 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 Spironolactone 1 by mouth every 30tabs Re 04/09/2017 25mg day or as directed 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 Azelastine HCL Use 1 [place] In Each Unknown (Nasal) Nostril Daily 0.15% [...] BMI (Body Mass Index) 26.7 kg/m2 Results Description No Information Available Procedures Date Code Description Status 10/06/2018 Inj/Aspir Major JT Or Bursa W/ US Completed 07/23/2018 Inj/Aspir Major JT Or Bursa W/ US Completed 06/03/2016 [id number] Mammogram Completed 10/12/2015 [id number] Bone Mineral Density Test Completed 05/25/2015 [id number] Mammogram Completed 05/24/2014 [id number] Mammogram Completed 05/19/2013 [id number] Mammogram Completed 05/20/2012 [id number] Mammogram Completed 05/18/2012 [id number] Mammogram Completed 05/16/2010 [id number] Mammogram Completed 05/03/2009 [id number] Mammogram Completed 02/02/2005 [id number] Bone Mineral Density Test Completed Medical Devices Description No Information Available Encounters Type Date Location Provider Dx Diagnosis Office Visit 12/29/2018 [facility] Techn[facility] D[facility]atology Amisha Medina MD Z08 Encntr for 11:45a follow-up exam after trtmt for malignant neoplasm Z85.828 Personal history of other malignant neoplasm of skin Office Visit 10/06/2018 8:00a Maximo Saab75.122 Complete [facility] at [facility] tear/ruptr of left shoulder, not trauma Z96.611 Presence of right artificial shoulder joint Office Visit 08/04/2018 8:15a [place] Zaneb Yaseen, M75.122 [facility] at [facility] tear/ruptr of left shoulder, not trauma Z96.611 [...] right artificial shoulder joint Lloyd Baker MD 07/23/2018 M75.122 Complete rotator cuff tear or rupture of left Lloyd Baker MD shoulder, not Plan of Treatment Future Appointment(s):02/16/2019 1:30 pm - Lloyd Baker MD at [facility]04/13/2019 7:45 am - Amisha Medina MD at [facility]02/03/2019 10:30 am - Lloyd Baker MD at [facility]01/19/2019 - Lloyd Baker MDM75.122 Complete rotator cuff tear or rupture of left shoulder, notFollow up:Follow up: 10-14 days post opM19.012 Primary osteoarthritis, left shoulder Functional Status Description No Information Available Mental Status Description No Information Available Referrals Description No Information Available
[2019-02-03] MEDS ORDERED: Famotidine IV* 10 MG/ML 2 ML (20 mg) ONE (05:58)
[2019-02-03] MEDS ORDERED: Lactated Ringers 1000 ML Bag* 1,000 ML IV SCH ×2 (06:00→10:00)
[2019-02-03] MEDS ORDERED: Famotidine IV* 10 MG/ML 2 ML (20 mg) IV ONE (06:00)
[2019-02-03] MEDS ORDERED: ROPIVACAINE 5 MG/ML 30 ML BTL (0.5%) ONE ×2 (07:11→07:26)
[2019-02-03] MEDS ORDERED: Midazolam* 1 MG/ML 5 ML VIAL (5 MG) ONE (07:20)
[2019-02-03] MEDS ORDERED: Lidocaine 1% MPF ** 5 ML VIAL ONE (07:26)
[2019-02-03] MEDS ORDERED: KETAMINE HCL* 50 MG/ML 10 ML VIAL ONE (07:59)
[2019-02-03] MEDS ORDERED: Lidocaine 2% PF * 5 ML VIAL ONE (08:00)
[2019-02-03] MEDS ORDERED: Succinylcholine* 20 MG/ML 10 ML VIAL ONE (08:00)
[2019-02-03] MEDS ORDERED: Propofol* 10 MG/ML 20 ML BTL ONE (08:00)
[2019-02-03] MEDS ORDERED: DiMENhydriNATE IV* 50 MG/ML VIAL ONE (08:00)
[2019-02-03] MEDS ORDERED: Ketorolac INJ* 30 MG/ML 1 ML VIAL ONE (08:00)
[2019-02-03] MEDS ORDERED: Ondansetron INJ* 2 MG/ML VIAL ONE (08:00)
[2019-02-03] MEDS ORDERED: Dexamethasone IV* 4 MG/ML 1 ML (4 MG) ONE (08:00)
[2019-02-03] MEDS ORDERED: Naloxone* 0.4 MG/ML 1 ML VIAL IV PRN (08:31)
[2019-02-03] MEDS ORDERED: DiMENhydriNATE IV* 50 MG/ML VIAL IV PUSH PRN (08:31)
[2019-02-03] MEDS ORDERED: Acetaminophen IV 1GM/100ML * 1,000 MG/100 ML VIAL IVPB ONE (08:31)
[2019-02-03] MEDS ORDERED: oxyCODONE TAB* 5 MG TAB PO PRN (08:31)
[2019-02-03] MEDS ORDERED: HYDROmorphone INJ1* 1 MG/ML SYRINGE ONE (09:01)
[2019-02-03] MEDS ORDERED: EPHEDrine (Pressors)* 50 MG/ML VIAL ONE (09:13)
[2019-02-03] MEDS ORDERED: diPHENhydraMINE PO* 25 MG PO PRN (09:32)
[2019-02-03] MEDS ORDERED: Magnesium Hydroxide LIQ* 30 ML UDC PO PRN (09:32)
[2019-02-03] MEDS ORDERED: Polyethylene Glycol 3350* 17 GM PACKET PO PRN (09:32)
[2019-02-03] MEDS ORDERED: diPHENhydraMINE IV* 50 MG/ML 1 ml VIAL (BENADRYL) IV PRN (09:32)
[2019-02-03] MEDS ORDERED: Morphine INJ* 2 MG/ML 1 ML SYRINGE (TWO MG - NEW SYRINGE VERSION) IV PRN (09:32)
[2019-02-03] MEDS ORDERED: Cyclobenzaprine TAB* 10 MG PO PRN (09:32)
[2019-02-03] MEDS ORDERED: Temazepam CAP* 15 MG PO PRN (09:32)
[2019-02-03] MEDS ORDERED: oxyCODONE/Acetamin 5/325 MG* TAB PO PRN ×2 (09:32)
[2019-02-03] MEDS ORDERED: Ondansetron ODT TAB* 4 MG PO PRN (09:32)
[2019-02-03] MEDS ORDERED: Ondansetron INJ* 2 MG/ML VIAL IV PRN (09:32)
[2019-02-03] MEDS ORDERED: Simethicone TAB* 80 MG TAB.CHEW PO PRN (09:44)
[2019-02-03] MEDS ORDERED: [UNRECOGNIZED DRUG - OTHER] PO PRN (09:44)
[2019-02-03] MEDS ORDERED: CMC: Lactase Enzyme (NF) 3,000 UNIT TAB PO PRN (09:44)
[2019-02-03] MEDS ORDERED: Mometasone 220 MCG MDI INH PRN (09:44)
[2019-02-03] MEDS ORDERED: Vancomycin per Pharmacy* NOTE FOLLOW UP SCH (10:00)
[2019-02-03] MEDS: Spironolactone TAB* 25 MG PO SCH ×2 (12:17→18:13)
[2019-02-03] MEDS: PTO: Albuterol HFA INHALER* 8 gm MDI INH SCH ×3 (12:20→21:44)
--- NOTE | 2019-02-03 12:57 | OP ---
DATE OF OPERATION: 02/03/19 - ROOM #350 DATE OF : [birth year] SURGEON: Lloyd Baker MD CLINICAL APPEALS RN: KAMILAH John. An city carrier assistant was needed for the entirety of the case to help with positioning, retraction, and utilized throughout all portions of the case. ANESTHESIOLOGIST: Dr. Loya. ANESTHESIA: General interscalene block. PRE-OP DIAGNOSIS: Left shoulder end-stage rotator cuff arthropathy. POST-OP DIAGNOSIS: Left shoulder end-stage rotator cuff arthropathy OPERATIVE PROCEDURE: Left should reverse arthroplasty and open biceps tenodesis. COMPLICATIONS: None. ESTIMATED BLOOD LOSS: About 100. OUTPUTS: Drains x1. IMPLANTS: Aequalis Reversed II 25 x 30 threaded post baseplate with 3 interlocking screws plus 36 Glenosphere, Ascend Flex 4B stem, and a centered reverse tray with a +6 poly. DISPOSITION: Stable. INDICATION: Faby Hobson is a 73-year-old female with end-stage glenohumeral arthritis. She had a previous reverse on the right side and did very well with that and the left side is far more painful. She has elected to proceed with surgical treatment. She underwent medical optimization. Risks and benefits were discussed at length including but not limited to bleeding; infection; damage to nerves, vessels, surrounding structures; wound nonhealing; persistent pain; need for further surgery; scaring; stiffness; incomplete relief of symptoms; and risks of anesthesia. DESCRIPTION OF PROCEDURE: The patient was greeted in the preoperative area by the attending surgeon. Correct extremity was marked and consent was confirmed. The patient brought back to the operating suite, placed in supine position on the operating table, first underwent interscalene nerve block by the anesthesiologist after which he was brought to the operating suite, placed in supine position on the operating table, underwent general anesthesia with endotracheal intubation after which he was appropriately positioned in the lazy beach chair position with all bony prominences were padded, secured with pegboard. The right shoulder was prepped and draped in the usual sterile fashion with chlorhexidine soap, scrub, alcohol wipe, and a final prep with ChloraPrep. After appropriate surgical pause indicating side, site, procedure, and administration of antibiotics, a standard deltopectoral incision was made using 15- blade. Soft tissue carefully dissected to expose the deltopectoral interval. The cephalic vein in deltopectoral interval was taken laterally. The pec fascia was identified and the first 1.5 cm was released. The biceps was then tenodesed using heavy nonabsorbable sutures. The biceps was then tenotomized proximal to this and followed into the joint. Hemostasis was maintained at all times and the 3 sisters were identified and suture ligated. The subscap was identified and released. This was tagged for later closure. The head was externally rotated and exposed. Any osteophytes were removed. Care was taken to gently remove these with a rongeur. The head was fully exposed. A neck cut was then made using a sagittal saw. The broaching then began. Once these were removed and placed in the back table, the humeral head cut was completed. Now broaching then began with the canal finder and the broaching beginning with size 1 to size 4 with 20 degrees of retroversion. Once the size 4 was placed, the protection plate was placed and attention directed to the glenoid. With posterior retractor in place and the glenoid was exposed, the labrum was removed in its entirety. At this point, the entire glenoid was exposed particularly inferiorly. Care was taken to protect the nerve. Once the glenoid was exposed, the guidewire was then placed in the low inferior portion of the glenoid. This was then over reamed with 25 mm reamer and then hand reamed with a 36 mm reamer. The 8 mm cannulated drill bit was then drilled and then a 6.5 mm drill bit was then drilled to the length of scapula. This was then measured and a 30 was found to appropriate. A size 30 screw hole was then tapped and a size 30 implant was then placed with excellent purchase that was secured with 3 interlocking setscrews. The Glenosphere was then impacted into position and secured with the setscrew. Attention was directed to the humerus. With the head brought through the wound, the broach was checked as well and was found to have a good fit. Decision was made to keep the stem as it is metaphyseal for the stem. The centered tray was then placed in poly and this was found to reduce appropriately with an appropriate amount of shuck. The external rotation to about 50, forward flexion to about 150, internal rotation to posterior hip and appropriate tension in the deltoid. The shoulder was then dislocated and final implants were then brought into the field. They were prepared in the back table by the attending surgeon. Final implants were impacted into position with appropriate version. Poly was placed. The shoulder was reduced and taken through some range of motion. The wounds were then copiously irrigated with sterile saline. At this point, the gram stain came back as negative. An intraarticular drain was then placed and the wounds were irrigated again. The deltopectoral interval was closed with #2 Ethibond in interrupted fashion. Wounds were irrigated again. The skin was closed in layers with 3-0 Monocryl in subcutaneous fashion as well as running fashion. Sterile dressings were applied. A Cryo/Cuff and a UltraSling were applied. He was awoken from anesthesia and transferred to the PACU in stable condition. POSTOPERATIVE PLAN: She will be nonweightbearing for 6 weeks. DVT prophylaxis was considered, but deferred due to no previous personal or family history. I will see the patient back in 10 to 14 days. She will likely be discharged on postop day 1, she will receive 24 hours of postoperative antibiotic, Lovenox while inpatient and postoperative x-rays will be obtained. [id number]/CPS #: [id number] OK
[2019-02-03] MEDS ORDERED: PTO: Fluticasone HFA 110 mcg(NF) MDI INH PRN (13:00)
[2019-02-03] MEDS: traMADol TAB* 50 MG PO PRN ×2 (13:36→22:18)
[2019-02-03] MEDS ORDERED: Dextran 70/Hypromellose Tears Eye Drops 15 ml BTL (for Artificials Tears) BOTH EYES PRN (15:13)
[2019-02-03] MEDS: Gabapentin CAP(*) 400 MG PO SCH (15:33)
[2019-02-03] MEDS: oxyCODONE TAB* 5 MG TAB PO PRN ×2 (16:49→21:42)
[2019-02-03] MEDS: Acetaminophen TAB* 325 MG PO SCH (18:13)
[2019-02-03] MEDS: Vancomycin(*) 1,000 MG in NS 0.9% 250 ML* 250 ML IVPB SCH (20:10)
[2019-02-03] MEDS ORDERED: Gabapentin CAP(*) 400 MG PO SCH (21:00)
[2019-02-03] MEDS: Calcium/Vitamin D TAB 250/125* TAB PO SCH (22:20)
[2019-02-03] MEDS: Docusate CAP* 100 MG PO SCH (22:20)
[2019-02-03] MEDS: Bumetanide TAB* 1 MG PO SCH (22:44)
[2019-02-04] MEDS: Acetaminophen TAB* 325 MG PO SCH ×2 (02:13→09:47)
[2019-02-04] MEDS: oxyCODONE TAB* 5 MG TAB PO PRN ×3 (04:30→13:47)
[2019-02-04 05:28] LABS: Hematocrit 24 % (35-47); Mean Platelet Volume 6.2 fL (7.4-10.4); Platelet Count 380 10^3/uL (150-450)
[2019-02-04 05:38] LABS: BUN/Creatinine Ratio 19.2 (8-20); Calcium 8.5 mg/dL (8.6-10.3); EGFR African American 87.8 (>60); EGFR Non-African American 72.6 (>60); Potassium 4.3 mmol/L (3.5-5.0)
[2019-02-04] MEDS: Spironolactone TAB* 25 MG PO SCH ×2 (08:05→12:21)
[2019-02-04] MEDS: Vancomycin(*) 1,000 MG in NS 0.9% 250 ML* 250 ML IVPB SCH (08:05)
[2019-02-04] MEDS: Gabapentin CAP(*) 400 MG PO SCH ×2 (08:05→13:47)
[2019-02-04] MEDS ORDERED: Pantoprazole TAB * 40 MG TAB PO SCH (09:00)
[2019-02-04] MEDS ORDERED: Cholecalciferol TAB* 1000 UNITS PO SCH (09:00)
[2019-02-04] MEDS ORDERED: Cetirizine* 10 MG TAB PO SCH (09:00)
[2019-02-04] MEDS ORDERED: Vitamin THERAPEUTIC TAB PO SCH (09:00)
[2019-02-04] MEDS: Bumetanide TAB* 1 MG PO SCH (09:44)
[2019-02-04] MEDS: Calcium/Vitamin D TAB 250/125* TAB PO SCH (09:45)
[2019-02-04] MEDS: Docusate CAP* 100 MG PO SCH (09:46)
[2019-02-04] MEDS: PTO: Albuterol HFA INHALER* 8 gm MDI INH SCH ×2 (09:50→12:16)
--- NOTE | 2019-02-04 09:52 | PN ---
Progress Note - Progress Note Date of Service: 02/04/19 SOAP: Subjective: []Pt seen at bedside she feels well, shoulder pain is well controlled. Denies CP , SOB, dizziness, lightheadedness, nausea, confusion, headache. she has a known history of hypoosmolar hyponatremia. Objective: []Gen: NAD, appears well LUE: sling in place, dressing CDI, no blood in cannister, drain was pulled with tip intact and tolerated well by the patient. F/E at wrist and MCPs intact, thumbs up and okay sign intact, sensation intact to light touch distally, cap refill less than two seconds distally, radial pulse 2+ Assessment: []left shoulder reverse arthroplasty POD 1 Plan: []NWB LUE PROM only of shoulder. No FF or abd past 90 no ER past 25. Ok AROM of elbow wrist and hand lovenox in house seen by medicine for hyponatremia. rec repeat at 1500 and fluid restrict to 1200 ml/day. If stable sodium value, DC and repeat in 3 days. Also rec repeat H& H Vital Signs Temp 97 F 02/04/19 05:55 Pulse 89 02/04/19 05:55 Resp 18 02/04/19 09:00 BP 114/48 02/04/19 05:55 Pulse Ox 93 02/04/19 05:55 Intake & Output 02/03/19 02/04/19 02/04/19 18:59 06:59 18:59 Intake Total 357 1545 Output Total 1000 1100 Balance -643 445 Intake: IV Fluids 117 35 LR 117 NS (0.9%) 35 IVPB 260 ABX - VANCOMYCIN 260 Oral 240 1250 Output: Hemovac Amount #1 0 Urine 1000 1100 Other: # Bowel Movements 0 Laboratory Last Values Hgb 8.0 g/dL (12.0-16.0) L 02/04/19 05:05 Hct 24 % (35-47) L 02/04/19 05:05 Plt Count 380 10^3/uL (150-450) 02/04/19 05:05 MPV 6.2 fL (7.4-10.4) L 02/04/19 05:05 Sodium 122 mmol/L (135-145) L 02/04/19 05:05 Potassium 4.3 mmol/L (3.5-5.0) 02/04/19 05:05 Chloride 92 mmol/L (101-111) L 02/04/19 05:05 Carbon Dioxide 24 mmol/L (22-32) 02/04/19 05:05 Anion Gap 6 mmol/L (2-11) 02/04/19 05:05 BUN 15 mg/dL (6-24) 02/04/19 05:05 Creatinine 0.78 mg/dL (0.51-0.95) 02/04/19 05:05 Est GFR ( Amer) 87.8 (>60) 02/04/19 05:05 Est GFR (Non-Af Amer) 72.6 (>60) 02/04/19 05:05 BUN/Creatinine Ratio 19.2 (8-20) 02/04/19 05:05 Glucose 112 mg/dL (70-100) H 02/04/19 05:05 Calcium 8.5 mg/dL (8.6-10.3) L 02/04/19 05:05
--- NOTE | 2019-02-04 10:52 | DS ---
Orthopedic Discharge Summary - Discharge Summary Date of Admission:02/03/19 Date of Discharge: 02/04/19 Date of Surgery: 02/03/19 Attending Orthopedic Provider: Dr Turcios Pre-operative Diagnosis: left shoulder pain Operative Procedure: left shoulder reverse arthroplasty Disposition of Patient: home Condition of Patient: stable History: LEONID GONZALEZ is a 73 year old F with years of increasingly severe left shoulder pain. Patient has failed conservative management and has elected to undergo a left reverse total shoulder replacement Hospital Course: LEONID was admitted to [facility] on 02/03/19. Patient underwent a left shoulder reverse arthroplasty without complication followed by a brief recovery in PACU and transfer to the Short Stay Surgical Unit in stable condition. Our hospitalist service, physical therapy and occupational therapy also participated in this patients care. Post-op day 1: patient was alert and in no acute distress. Dressing was clean, dry and intact. drain was removed with tip intact. Operative extremity wrist and digit flexion and extension intact, sensation intact to light touch distally,radial pulse+. Her sodium was 122 on morning labs, she has a known history of hyponatremia, hospitalist saw her and fluid restrict her, repeat afternoon labs sodium was 124 and will repeat in 3 days. Her left eye felt " scratchy" last night which is completely resolved today with no change in vision from baseline. Physical therapy goals were met. Home Medications Medication Instructions Recorded Confirmed Type Spironolactone [Aldactone 25 MG-] 25 mg PO TID WITH MEALS 10/17/15 02/03/19 History Albuterol HFA INHALER* [Ventolin 2 puff INH QID 12/24/17 02/03/19 History HFA Inhaler*] Bumetanide TAB* [Bumex 1 MG TAB*] 1 mg PO BID 12/24/17 02/03/19 History Fluticasone HFA 110 mcg(NF) 2 puff INH BID PRN 12/24/17 02/03/19 History [Flovent HFA 110 mcg(NF)] Gabapentin CAP(*) [Neurontin 400 400 mg PO 0800,1400 12/24/17 02/03/19 History mg CAP(*)] Cholecalciferol (Vitamin D3) 2,000 unit PO QAM 12/30/17 02/03/19 History [Vitamin D3] Fexofenadine HCl 180 mg PO QAM 04/24/18 02/03/19 History Pantoprazole TAB * [Protonix TAB*] 40 mg PO QAM 04/24/18 02/03/19 History Gabapentin CAP(*) [Neurontin 400 800 mg PO BEDTIME 12/23/18 02/03/19 History mg CAP(*)] [id number]-[id number]-Fpznhuzownrwa [Beano] 1 tab PO ONCE PRN 01/21/19 02/03/19 History Calcium/Vitamin D TAB 250/125* 1 tab PO BID 01/21/19 02/03/19 History [Oscal D TAB 250/125*] Ibuprofen TAB* [Advil TAB*] 200 mg PO QID 01/21/19 02/03/19 History Lactase [Lactaid] 1 tab PO ONCE PRN 01/21/19 02/03/19 History Multivitamin [Multiple Vitamins] 1 tab PO 1200 01/21/19 02/03/19 History Simethicone [Gas-X] 1 tab PO ONCE PRN 01/21/19 02/03/19 History Acetaminophen TAB* [Tylenol TAB*] 975 mg PO Q8H tab 02/04/19 Rx Docusate CAP* [Colace Cap*] 100 mg PO BID PRN #90 cap 02/04/19 Rx oxyCODONE TAB* [Roxycodone TAB 5 10 mg PO Q4H PRN #40 tab MDD 8 02/04/19 Rx mg*] Discharge Instructions following Orthopedic Surgery: Activity: * Passive range of motion only of shoulder. No forward flexion or abduction past 90 degrees, no external rotation past 25 degrees. Ok active range motion of elbow wrist and hand * Sling at all times Wound care: * OK to shower on post-op day 3, no bathing, swimming, or submerging wound. * Use gentle soap, pat dry. Cover with gauze tape. Call Orthopedic office for: * Increased drainage * Redness * Increased pain * Fever Go to ER with shortness of breath or chest pain. Diet: * Regular diet * Increase fluids and fiber to prevent constipation. * Continue to use stool softeners, call office if no bowel motion within 48 hours. Medications See Home Medication List in your packet for medications that you should take after discharge. Pain Control: oxycodone Dosin mg 1 tab for moderate and 2 tabs for severe pain by mouth every 4-6 hours as needed for pain. Maximum of 8 tabs per day. Hold for sedation and wean off as soon as pain allows Please note that Percocet contains Tylenol (acetaminophen). Maximum daily dose of Tylenol is 4000 mg from all sources. Antibiotics are required prior to any dental work. Recheck sodium in 3 days recheck H&H in 3 days FOLLOW UP: Follow up with [Olivia] Within 10-14 days, call for appointment Please call our office with any questions or concerns ([phone]) [facility]
[2019-02-04 11:40] VITALS: BP 107/57
[2019-02-04] MEDS ORDERED: Enoxaparin(*) 40 MG/0.4 ML SYR SUBCUT SCH (12:00)
--- NOTE | 2019-02-04 12:34 | CONS ---
HOSPITAL MEDICINE CONSULTATION REPORT: DATE OF CONSULT: 02/04/19 PROVIDER: Steph Lopez NP ATTENDING PHYSICIAN: Dr. Baker. CONSULTING PHYSICIAN: Dr. Anne Marie Mcfarland (dictated by Steph Lopez NP). REASON FOR CONSULT: Hyponatremia. HISTORY OF PRESENT ILLNESS: Ms. Hobson is a 73-year-old female with a past medical history significant for hypertension, chronic hyponatremia, Lim's esophagus, scoliosis, osteoarthritis, history of non-Hodgkin's lymphoma, history of alcoholism, who presented to [facility] for a left shoulder surgery. Please see dictated H and P from Avril Mora for complete details. In brief, the patient had ongoing pain to her left shoulder with a rotator cuff tear, failed conservative measures; therefore, opted to undergo an elective left total shoulder reverse with Dr. Baker. In the immediate postoperative period, the patient has no complaints. She denies any nausea, vomiting, chest pain. She denies any fever or chills. Denies any shortness of breath, cough, coughing up blood. Denies any sensory loss, weakness on one side. Denies any urinary frequency, urgency, or pain with urination. While in the hospital, she has been recovering well since her shoulder surgery. Her morning lab work showed worsening hyponatremia with a sodium of 122. Due to this lab finding, Hospital Medicine was consulted to evaluate the patient. PAST MEDICAL HISTORY: Significant for: 1. Hypertension. 2. Chronic hyponatremia. 3. Lim's esophagus. 4. Scoliosis. 5. Osteoarthritis. 6. Non-Hodgkin's lymphoma. 7. History of alcoholism, sober x14 years. PAST SURGICAL HISTORY: 1. Right axillary mass removed in 1992 with chemotherapy. 2. D and C. 3. Basal cell carcinoma of the left knee. 4. Squamous cell carcinoma of the scalp. 5. Cholecystectomy. 6. Tonsillectomy. 7. Appendectomy. 8. Right shoulder surgery. HOME MEDICATIONS: Include: 1. Colace 100 mg 1 tablet twice daily. 2. Bumetanide 1 mg once weekly. 3. Spironolactone 25 mg 1 tablet daily. 4. Gabapentin 400 mg 1 tablet in the a.m., 2 tablets at bedtime. 5. Flovent HFA inhaler 110 mcg 2 puffs twice daily. 6. ProAir 108 mcg 2 puffs every 4 hours as needed for shortness of breath. 7. Ibuprofen 400 to 600 mg every 6 hours as needed for pain. 8. Multivitamin 1 tablet p.o. daily. 9. Os-Fox with vitamin D. 10. Vitamin D super strength 2000 units 1 tablet p.o. daily. 11. Fexofenadine 180 mg p.o. daily. 12. Diclofenac sodium 1% 2 g to affected area twice daily. 13. Lactaid as directed. 14. Protonix 40 mg once by mouth every day. ALLERGIES: CEPHALOSPORIN, SHELLFISH, KEFLEX, and CLINDAMYCIN. FAMILY HISTORY: No reported history of coronary artery disease or diabetes. Mother with lung cancer, at the age of 78 from lung cancer. 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 She denies any tobacco use. She does report a history of alcoholism, but has been currently sober x14 years. She is right-hand dominant and she walks independently. Surrogate decision maker in the event she is unable to make her own decisions is her brother, Kole. She is a full code. REVIEW OF SYSTEMS: An 11-point review of systems was completed. All pertinent positives were mentioned in the HPI, otherwise were negative. PHYSICAL EXAM: General: At this time, Ms. Hobson is a 73-year-old female. She is resting comfortably in her hospital bed. She is in no acute distress. Vital Signs: Blood pressure 130/60, heart rate 80, respirations 18, O2 saturation 98% on room air, temperature was 98.1. HEENT: Head is atraumatic, normocephalic. Eyes: EOMs are intact. Sclerae anicteric and not pale. Oral mucosa appeared to be moist. Neck is supple. Lungs are clear to auscultation bilaterally. No wheezes, rales, or rhonchi. Cardiac: S1, S2. Regular rate and rhythm. No murmurs, rubs, or gallops. Abdomen is soft and nontender. Bowel sounds are present x4. Neurologic: She is awake, alert, and oriented x3. Speech is clear. Thought process is intact. There are no gross focal deficits. Extremities: She is able to move all 4 extremities. Radial pulses are +2 bilaterally. Pedal pulses are +2 bilaterally. Skin: She does have a dressing that is dry and intact to her left shoulder. DIAGNOSTIC STUDIES/LAB DATA: H and H is 8.4 and 24 down from 10.6 on 01/21/19 and hematocrit was 31 on 01/21/19, platelet count was 380. BMP: Sodium 122, potassium 4.3, chloride 92, carbon dioxide was 24, anion gap was 6, BUN was 15, creatinine 0.78, glucose was 112, calcium was 8.5. IMPRESSION AND PLAN: Ms. Hobson is a 73-year-old female with past medical history significant for hypertension, chronic hyponatremia, Lim's esophagus , scoliosis, osteoarthritis, history of non-Hodgkin's lymphoma, and history of alcoholism, sober x14 years, who presented to [facility] for an elective left shoulder replacement with Dr. Baker. During her postoperative period, she was found to be hyponatremic, so Hospital Medicine was consulted. Our recommendations are as follows: 1. Status post left total shoulder reverse. Management per Orthopedics. PT/ OT per Orthopedics. Bowel regimen per Orthopedics. Pain management per Orthopedics. 2. Hyponatremia. The patient does have chronic hyponatremia, which has been worked up in the past. I would recommend at this time fluid restriction to 1200 cc a day. I will repeat a sodium level at 3 p.m. I suspect her drop in sodium could be related to dilution from surgery. I would also recommend after discharge, the patient have a repeat BMP within 3 days. Should the patient's sodium level continue to trend downward, I would recommend the patient stay for further observation. 3. Anemia. The patient does have some baseline anemia. Her anemia is slightly worse than her baseline. I would recommend a repeat H and H this afternoon and then a repeat CBC in 3 days if her H and H remains stable. 4. Hypertension. She can continue on her spironolactone as previously prescribed. 5. Lim's esophagus. She should continue on Protonix 40 mg p.o. daily. 6. FEN: She can have a regular diet. 7. Code status: She is a full code. 8. DVT prophylaxis: As per Orthopedics. TIME SPENT: Time spent on this consultation was 45 minutes; greater than half that time was spent at the bedside reviewing events leading thus far to her hospitalization, performing physical exam, and reviewing my plan of care. I have discussed this with my attending, Dr. Anne Marie Mcfarland; she is in agreement with my plan. STEPH LOPEZ, CHILDREN'S ATTENDANT [id number]/[facility] #: [id number] [facility]ITALKarol
[2019-02-04 14:31] LABS: Hematocrit 24 % (35-47)
[2019-02-05] MEDS ORDERED: Bisacodyl SUPP* 10 MG SUPP PR PRN (09:33)
== END 2019-02-04 15:20 | disposition home or self-care (01) | DRG 483 ==
LOC: INTOOBSV 05:31 → AA 05:31 → SSU 09:33 → OBSVTOIN 09:40
PROVIDERS: ADMIT Orthopaedic Surgery; ATTEND Orthopaedic Surgery
PROC: 0RRK00Z Replacement of Left Shoulder Joint with Reverse Ball and Socket Synthetic Substitute, Open Approach (ICD-10-PCS; principal; 2019-02-03 07:30)
DX: M19.012 Primary osteoarthritis, left shoulder (principal); E87.1 Hypo-osmolality and hyponatremia; I10 Essential (primary) hypertension; J45.998 Other asthma; K74.60 Unspecified cirrhosis of liver; K22.70 Barrett's esophagus without dysplasia; M41.9 Scoliosis, unspecified; M75.122 Complete rotator cuff tear or rupture of left shoulder, not specified as traumatic; D64.9 Anemia, unspecified; G62.9 Polyneuropathy, unspecified; S00.212A Abrasion of left eyelid and periocular area, initial encounter; X58.XXXA Exposure to other specified factors, initial encounter; Y92.239 Unspecified place in hospital as the place of occurrence of the external cause; Z88.1 Allergy status to other antibiotic agents; Z79.899 Other long term (current) drug therapy; Z91.013 Allergy to seafood; Z85.72 Personal history of non-Hodgkin lymphomas; Z85.828 Personal history of other malignant neoplasm of skin; Z92.21 Personal history of antineoplastic chemotherapy; Z88.8 Allergy status to other drugs, medicaments and biological substances; Z79.51 Long term (current) use of inhaled steroids
CPT/HCPCS: 36415; 80048; 84300; 85014; 85018; 85049; 88304; 88311; A9270-GY; C1713; C1776; G8978-GP-CI; G8979-GP-CI; G8980-GP-CI; J0330; J1100; J1170; J1240; J1650; J1885; J2250; J2405; J2704; J2795; J3370

== ENCOUNTER 2023-02-13 06:15 | Observation (INO) ==
[~2023-02-13 06:15] MED LIST changes: +Buffered Lidocaine 1% SYRIN 1 ml INTRADERM ONE; -Buffered Lidocaine 1% SYRIN* 1 ML/SYRINGE INTRADERM ONE; +Famotidine IV 10 MG/ML 2 ml VIAL (20 mg) IV ONE; +NS 0.9% 1000 ml BAG 1,000 ML IV SCH; -Tranexamic Acid 1,000 MG in NS 0.9% 50 ML* (outpatient use) IV SCH; -Vancomycin(*) 1,000 MG in NS 0.9% 250 ML* 250 ML IVPB SCH
[2023-02-13] MEDS ORDERED: Famotidine IV 10 MG/ML 2 ml VIAL (20 mg) ONE (06:38)
[2023-02-13] MEDS ORDERED: ROPIVACAINE 5 MG/ML 30 ML BTL (0.5%) ONE (07:12)
[2023-02-13] MEDS ORDERED: Propofol 10 MG/ML 20 ML BTL ONE (07:38)
[2023-02-13] MEDS ORDERED: Phenylephrine IV 10 MG/ML 1 ml VIAL ONE (07:38)
[2023-02-13] MEDS ORDERED: Lidocaine 2% PF 5 ML VIAL ONE (07:38)
[2023-02-13] MEDS ORDERED: Dexamethasone IV 4 MG/ML VIAL 1 ml VIAL ONE (07:39)
[2023-02-13] MEDS ORDERED: Midazolam 2 mg/2 ml VIAL 1 mg/ml 2 ml VIAL (2 mg) ONE (07:39)
[2023-02-13] MEDS ORDERED: fentaNYL 100 mcg/2 ml 50 MCG/ML VIAL ONE ×2 (07:39→11:59)
[2023-02-13] MEDS ORDERED: Rocuronium 50 mg VIAL 10 mg/ml 5 ml VIAL (50 mg) ONE (07:39)
[2023-02-13] MEDS ORDERED: Ondansetron 4 mg VIAL 2 MG/ML 2 ml VIAL ONE (07:39)
[2023-02-13] MEDS ORDERED: Vancomycin 1000 MG in NS 0.9% 250 ML IVPB ONE (08:00)
[2023-02-13] MEDS ORDERED: Tranexamic Acid 1 GM/100ML BAG 2,000 MG/200 ML BAG IV ONE (09:03)
[2023-02-13] MEDS ORDERED: Acetaminophen IV 1 GM/100ML 1,000 MG/100 ML BAG IV ONE (10:07)
[2023-02-13] MEDS ORDERED: Ondansetron ODT 4 mg TAB 4 MG TAB PO PRN (10:08)
[2023-02-13] MEDS ORDERED: Morphine 2 MG/ML SYRINGE IV PRN (10:08)
[2023-02-13] MEDS ORDERED: Magnesium Hydroxide LIQ 30 ML UDC PO PRN (10:08)
[2023-02-13] MEDS ORDERED: Ondansetron 4 mg VIAL 2 MG/ML 2 ml VIAL IV PRN (10:08)
[2023-02-13] MEDS ORDERED: Lactulose 30 ml UDC PO PRN (10:08)
[2023-02-13] MEDS ORDERED: Naloxone 0.4 mg VIAL 0.4 mg/ml 1 ml VIAL IV PRN (10:26)
[2023-02-13] MEDS ORDERED: Lactated Ringers 1000 ml BAG 1,000 ML IV SCH (11:00)
[2023-02-13] MEDS ORDERED: ceFAZolin 1 GM ADVAN 1 GM in NS 0.9% 50 ML 50 ML IVPB SCH (11:00)
[2023-02-13] MEDS: fentaNYL 100 mcg/2 ml 50 MCG/ML VIAL IV PRN ×4 (12:01→12:20)
[2023-02-13] MEDS ORDERED: HYDROmorphone 1 MG/1 ML SYRINGE ONE (12:21)
[2023-02-13] MEDS: HYDROmorphone 1 MG/1 ML SYRINGE IV PRN ×5 (12:25→13:39)
[2023-02-13] MEDS ORDERED: Fluticasone NASAL SPRAY 50MCG 16 gm SPRAY BTL INTRANASAL PRN (13:32)
[2023-02-13] MEDS ORDERED: Lactase Enzyme (NF) 3,000 UNIT TAB PO PRN (13:32)
[2023-02-13] MEDS: PTO: Fluticasone HFA 110 mcg(NF) MDI INH SCH (20:23)
[2023-02-13] MEDS: PTO: Albuterol HFA INHALER 8 gm MDI INH SCH (20:26)
[2023-02-13] MEDS: Vancomycin 1,000 MG in NS 0.9% 250 ml 250 ML IVPB SCH (22:19)
[2023-02-13] MEDS: Magnesium Hydroxide LIQ 30 ML UDC PO SCH (22:29)
[2023-02-14] MEDS: PTO: Albuterol HFA INHALER 8 gm MDI INH SCH (08:12)
[2023-02-14] MEDS: PTO: Fluticasone HFA 110 mcg(NF) MDI INH SCH (08:12)
[2023-02-14 08:16] LABS: Hematocrit 29.7 % (35-45); Hemoglobin 10.2 g/dL (11.5-14.3); Mean Platelet Volume 6.3 fL (7.5-11.2); Platelet Count 416 10^3/uL (150-450)
[2023-02-14 08:35] LABS: Calcium 9.1 mg/dL (8.6-10.3); Creatinine, Serum 0.73 mg/dL (0.51-0.95); Potassium 4.3 mmol/L (3.5-5.0); eGFR CKD-EPI 84.6 (>60)
[2023-02-14] MEDS ORDERED: Vitamin THERAPEUTIC TAB PO SCH (09:00)
[2023-02-14] MEDS: Vancomycin 1,000 MG in NS 0.9% 250 ml 250 ML IVPB SCH (09:32)
[2023-02-14] MEDS: Magnesium Hydroxide LIQ 30 ML UDC PO SCH (09:33)
[2023-02-14 12:54] VITALS: BP 98/52
== END 2023-02-14 13:40 | disposition home or self-care (01) ==
LOC: OR 06:15 → SSU 06:15
PROVIDERS: ADMIT Orthopaedic Surgery Adult Reconstructive Orthopaedic Surgery; ATTEND Orthopaedic Surgery Adult Reconstructive Orthopaedic Surgery